=== PATIENT | male | born 1950 | race Caucasian/White ===

== ENCOUNTER 2019-08-03 23:16 | Inpatient (IN) | payer MEDICARE, OTHER ==
[2019-08-03] MEDS ORDERED: MORPHINE SULFATE 4 MG/ML SYRINGE IV STA (23:30)
--- NOTE | 2019-08-03 23:33 | ED ---
Fall HPI - General Chief Complaint: Fall Stated Complaint: Fall Time Seen by Provider: 08/03/19 23:25 Source: EMS Mode of arrival: EMS - History of Present Illness Initial Comments: This patient is 68-year-old man who presents by ambulance to be evaluated for left hip pain following a fall. Patient states that he was painting his ceiling tonight and was standing on a table approximately 3-4 feet high to reach the ceiling. I states that he lost his footing and fell landing on his left hip. This was approximately 4 hours ago. He states that he was then not able to bear any weight and had called EMS as result. He denies head or neck injury. No loss consciousness. He is not having chest, back, abdomen abdomen or other extremity pains. MD Complaint: fall -: hour(s) Fall From: from height (distance) (4) When Fall Occurred: 4-[address] Fall Occurred: home Loss of Consciousness: none Prolonged Down Time?: no Symptoms Prior to Fall: none Location - Extremities: Left: Thigh Severity: severe Quality: sharp Context: tripped/slipped Associated Symptoms: unable to walk - Related Data Allergies Allergy/AdvReac Type Severity Reaction Status Date / Time No Known Allergies Allergy Verified 08/03/19 23:26 Review of Systems ROS Statement: Those systems with pertinent positive or pertinent negative responses have been documented in the HPI. ROS Other: All systems not noted in ROS Statement are negative. Constitutional: Denies: fever, chills Respiratory: Denies: cough, dyspnea Cardiovascular: Denies: chest pain, syncope Gastrointestinal: Denies: abdominal pain, vomiting Genitourinary: Denies: hematuria, testicular pain Musculoskeletal: Reports: as per HPI, arthralgia. Denies: back pain Skin: Denies: rash Neurological: Denies: headache, weakness, numbness, paresthesias Past Medical History Past Medical History: Cancer, COPD, Hypertension Additional Past Medical History / Comment(s): bladder cancer, History of Any Multi-Drug Resistant Organisms: None Reported Past Surgical History: Orthopedic Surgery Additional Past Surgical History / Comment(s): right knee, right femur FX reduction, Past Psychological History: No Psychological Hx Reported Smoking Status: Current every day smoker Past Alcohol Use History: Daily Past Drug Use History: Marijuana General Exam Limitations: no limitations General appearance: alert, in no apparent distress Head exam: Present: atraumatic, normocephalic, normal inspection Eye exam: Present: normal appearance, PERRL, EOMI. Absent: scleral icterus, conjunctival injection, nystagmus ENT exam: Present: normal oropharynx Neck exam: Present: normal inspection, full ROM. Absent: tenderness, meningismus Respiratory exam: Present: normal lung sounds bilaterally. Absent: respiratory distress, wheezes, rales, rhonchi, stridor, chest wall tenderness Cardiovascular Exam: Present: regular rate, normal rhythm, normal heart sounds. Absent: systolic murmur, diastolic murmur, rubs, gallop GI/Abdominal exam: Present: soft. Absent: distended, tenderness, guarding, rebound, rigid, mass Extremities exam: Present: normal inspection, tenderness (Left hip), normal capillary refill. Absent: full ROM, pedal edema, calf tenderness Back exam: Present: normal inspection. Absent: CVA tenderness (R), CVA tenderness (L), paraspinal tenderness, vertebral tenderness Neurological exam: Present: alert, oriented X3. Absent: CN II-XII intact, motor sensory deficit Skin exam: Present: warm, dry, intact, normal color. Absent: rash Course Vital Signs 08/03/19 08/04/19 23:18 00:39 Temperature 98.2 F Pulse Rate 88 81 Respiratory 18 18 Rate Blood Pressure 140/105 156/92 O2 Sat by Pulse 98 97 Oximetry Medical Decision Making - EKG Data -: EKG Interpreted by Sd EKG shows normal: sinus rhythm (Rate 82 bpm), axis (Normal), intervals (Normal), QRS complexes (Normal), ST-T waves (Normal) Rate: normal Interpretation: normal EKG Disposition Clinical Impression: Fall, Closed left hip fracture Disposition: ADMITTED IP TO THIS [facility] Condition: Fair Is patient prescribed a controlled substance at d/c from ED?: No Referrals: None,Stated [Primary Care Provider] - 1-2 days
[2019-08-04] MEDS ORDERED: SODIUM CHLORIDE 0.9% 1,000 ML IV STA (00:09)
[2019-08-04] MEDS ORDERED: SODIUM CHLORIDE 0.9% 1,000 ML IV ONE (00:09)
--- NOTE | 2019-08-04 00:23 | XR ---
EXAMINATION TYPE: XR Hip LT and AP Pelvis DATE OF EXAM: 08/03/2019 COMPARISON: NONE HISTORY: Fall. Hip pain TECHNIQUE: 4 views FINDINGS: The pelvic ring is intact. There is acute intertrochanteric fracture of the left femur with coxa vera deformity. There is some comminution. There is no dislocation. There is right hip pinning noted. Sacroiliac joints are intact. IMPRESSION: Acute comminuted intertrochanteric fracture left femur.
[2019-08-04] MEDS ORDERED: HYDROmorphone 1 MG/ML 1 ML SYRINGE IVP STA (00:26)
--- NOTE | 2019-08-04 00:27 | XR ---
EXAMINATION TYPE: XR chest 1V DATE OF EXAM: 08/03/2019 COMPARISON: NONE HISTORY: Preop. Hip surgery. TECHNIQUE: 2 views AP FINDINGS: There is no heart failure nor confluent pneumonic infiltrate. Costophrenic angles are clear . Thoracic aorta is atheromatous. IMPRESSION: Atherosclerotic thoracic aorta. No active cardiopulmonary disease.
[2019-08-04] MEDS ORDERED: ACETAMINOPHEN TAB 325 MG TAB PO PRN (00:42)
[2019-08-04] MEDS ORDERED: ONDANSETRON 4 MG/2 ML VIAL IVP PRN (00:42)
[2019-08-04] MEDS ORDERED: MAG HYDROX/AL HYDROX/SIMETH 30 ML CUP PO PRN (00:42)
[2019-08-04] MEDS ORDERED: NALOXONE 0.4 MG/ML 1 ML VIAL IV PRN (00:42)
[2019-08-04] MEDS ORDERED: THIAMINE 100 MG/ML 2 ML VIAL IM STA (00:45)
[2019-08-04] MEDS ORDERED: SODIUM CHLORIDE 0.9% 1,000 ML IV SCH (00:45)
[2019-08-04] MEDS ORDERED: LORazepam 2 MG/ML INJ IV PRN ×3 (00:45)
[2019-08-04 00:58] LABS: African American GFR (CKD) >90 (>60 ml/min/1.73 sqM); Anion Gap 10 mmol/L; Blood Urea Nitrogen 8 mg/dL (9-20); Calcium 9.2 mg/dL (8.4-10.2); Carbon Dioxide 23 mmol/L (22-30); Chloride 93 mmol/L (98-107); Glucose 118 mg/dL (74-99); Non-African American GFR(CKD) >90 (>60 ml/min/1.73 sqM); Potassium 4.6 mmol/L (3.5-5.1); Sodium 126 mmol/L (137-145)
[2019-08-04 01:05] LABS: Basophils % (A) 0 %; Eosinophils # (A) 0.1 k/uL (0-0.7); Eosinophils % (A) 1 %; HCT 34.5 % (39.0-53.0); HGB 11.8 gm/dL (13.0-17.5); Lymphocytes # (A) 1.4 k/uL (1.0-4.8); Lymphocytes % (A) 12 %; MCH 32.2 pg (25.0-35.0); MCHC 34.3 g/dL (31.0-37.0); MCV 93.9 fL (80.0-100.0); Mean Platelet Volume 7.5; Monocytes # (A) 0.6 k/uL (0-1.0); Monocytes % (A) 5 %; Neutrophils # (A) 8.8 k/uL (1.3-7.7); Neutrophils % (A) 79 %; Platelet Count 271 k/uL (150-450); RBC 3.67 m/uL (4.30-5.90); RDW 13.4 % (11.5-15.5); WBC 11.1 k/uL (3.8-10.6)
[2019-08-04 01:09] LABS: Partial Thromboplastin Time 24.2 sec (22.0-30.0)
[2019-08-04 01:22] LABS: Appearance,Urine Clear (Clear); Bilirubin,Urine Negative (Negative); Blood,Urine Negative (Negative); Color,Urine Yellow; Glucose,Urine (UA) Negative (Negative); Hyaline Casts,Urine 3 /lpf (0-2); Ketones,Urine 1+ (Negative); Leukocyte Esterase,Urine Moderate (Negative); Mucus,Urine Rare /hpf; Nitrite,Urine Negative (Negative); Protein,Urine Trace (Negative); RBC,Urine 8 /hpf (0-5); Specific Gravity,Urine 1.017 (1.001-1.035); Urobilinogen,Urine <2.0 mg/dL (<2.0); WBC,Urine 32 /hpf (0-5)
[2019-08-04] MEDS: HYDROmorphone 1 MG/ML 1 ML SYRINGE IVP PRN ×6 (03:41→20:59)
[2019-08-04] MEDS: FAMOTIDINE 20 MG TAB PO SCH ×2 (08:26→20:58)
[2019-08-04] MEDS ORDERED: MONTELUKAST 10 MG TAB PO PRN (08:50)
--- NOTE | 2019-08-04 09:20 | P.HPOR ---
History of Present Illness H&P Date: 08/04/19 This patient is a 68-year-old male past medical history of alcohol abuse, nicotine dependence, and COPD that presented to [facility] ER yesterday via EMS with complaints of left hip pain following a fall. The patient states he had had a few beers, and decided to paint the ceiling. He was standing on top of a table, when he lost his balance and fell directly onto the left hip. He states he experienced immediate pain in the left hip and was unable to get up on his own. He states his family members helped him off the floor, and EMS was called. The patient was taken to [facility] emergency department, where x-rays of the left hip revealed a displaced intertrochanteric hip fracture. The patient was admitted under the care of Dr. Cortes Gomez, with a consult placed to internal medicine for surgical clearance and medical management. At the time exam, the patient is complaining of isolated left hip pain. He states he is not experiencing pain anywhere else. He states his pain is currently well-controlled in the left hip. He states he experienced significant pain with any movement of the left lower extremity. He denies any additional complaints at this time. Vital signs stable. Past Medical History Past Medical History: Cancer, COPD, Hypertension Additional Past Medical History / Comment(s): bladder cancer, History of Any Multi-Drug Resistant Organisms: None Reported Past Surgical History: Orthopedic Surgery Additional Past Surgical History / Comment(s): right knee, right femur FX reduction, Past Anesthesia/Blood Transfusion Reactions: No Reported Reaction Past Psychological History: No Psychological Hx Reported Smoking Status: Current every day smoker Past Alcohol Use History: Daily Additional Past Alcohol Use History / Comment(s): Drinks about 8 beers a daily. Has been smoking for 60 years. Past Drug Use History: Marijuana - Past Family History Mother Family Medical History: Diabetes Mellitus Father Family Medical History: Diabetes Mellitus Additional Family Medical History / Comment(s): of a heart attack Medications and Allergies Home Medications Medication Instructions Recorded Confirmed Type Fluticasone/Salmeterol [Advair Hfa 1 puff INHALATION RT-BID 08/04/19 08/04/19 History 115-21 Mcg Inhaler] Ibuprofen 400 mg PO Q8H PRN 08/04/19 08/04/19 History Ipratropium/Albuter 20-100Mcg 1 puff INHALATION RT-QID 08/04/19 08/04/19 History [Combivent Respimat 20-100Mcg Inhaler] Lisinopril 40 mg PO DAILY 08/04/19 08/04/19 History Montelukast [Singulair] 10 mg PO DAILY PRN 08/04/19 08/04/19 History amLODIPine BESYLATE 5 mg PO DAILY 08/04/19 08/04/19 History Allergies Allergy/AdvReac Type Severity Reaction Status Date / Time No Known Allergies Allergy Verified 08/04/19 08:16 Physical Examination On examination, the patient is lying in bed in no apparent distress. He is alert and oriented 3. His head appears normocephalic and atraumatic. His breathing appears nonlabored. On inspection of the bilateral upper extremities, there are no obvious deformities or signs of trauma. On inspection of the right lower extremity there is no obvious deformities or signs of trauma. On inspection of the left lower extremity, the extremity is shortened and externally rotated. There is significant pain on palpation of the left hip. Patient has good strength and range of motion of the left ankle. Motor and sensory function appear to be intact of the left lower extremity. Left lower extremity is warm and well-perfused with brisk capillary refill. Dorsalis pedis pulse +2. Vital signs stable. Results Left hip x-ray 08/03/2019: Displaced intertrochanteric hip fracture - Labs Labs: Abnormal Lab Results - Last 24 Hours (Table) 08/03/19 08/03/19 08/04/19 Range/Units 23:24 23:24 01:08 WBC 11.1 H (3.8-10.6) k/uL RBC 3.67 L (4.30-5.90) m/uL Hgb 11.8 L (13.0-17.5) gm/dL Hct 34.5 L (39.0-53.0) % Neutrophils # 8.8 H (1.3-7.7) k/uL Sodium 126 L (137-145) mmol/L Chloride 93 L (98-107) mmol/L BUN 8 L (9-20) mg/dL Creatinine 0.34 L (0.66-1.25) mg/dL Glucose 118 H (74-99) mg/dL Urine Protein Trace H (Negative) Urine Ketones 1+ H (Negative) Ur Leukocyte Esterase Moderate H (Negative) Urine RBC 8 H (0-5) /hpf Urine WBC 32 H (0-5) /hpf Hyaline Casts 3 H (0-2) /lpf Urine Mucus Rare H (None) /hpf H & H 08/03/19 Range/Units 23:24 Hgb 11.8 L (13.0-17.5) gm/dL Hct 34.5 L (39.0-53.0) % Coagulation 08/03/19 Range/Units 23:24 INR 1.0 (<1.2) Result Diagrams: 08/03/19 23:24 08/03/19 23:24 Assessment and Plan Assessment: Displaced left intertrochanteric fracture Plan: - The clinical and x-ray findings were discussed with the patient. Patient was discussed with Dr. Cortes Gomez. Operative fixation of the left hip is recommended. We will plan for a closed reduction and intramedullary nailing of the left hip today, pending medical clearance and consent. - Strict nonweightbearing left lower extremity. - Continue pain management as needed. - Medical management per internal medicine. - NPO diet. Patient discussed with Dr. Gomez.
[2019-08-04 10:45] VITALS: BMI 18.2
[2019-08-04] MEDS: amLODIPine 5 MG TAB PO SCH (11:15)
[2019-08-04 11:36] LABS: Potassium 4.2 mmol/L (3.5-5.1)
[2019-08-04] MEDS: IPRATROPIUM-ALBUTEROL 3 ML NEB INHALATION SCH ×3 (11:44→20:30)
--- NOTE | 2019-08-04 11:54 | P.CONS ---
History of Present Illness - Reason for Consult Preoperative clearance. - History of Present Illness 68-year-old the female admitted for mechanical fall without any syncope and left hip fracture and patient will undergo surgical intervention today. Patient has fairly good functionality although drinks an daily basis as today he did drink 3 beers before he came to the hospital and the normally he drinks about 8-10 beers on a daily basis denied any alcohol withdrawals in the past patient does smoke does have a wheezing which is chronic and significant. Patient denied any chest pain denied any shortness of breath orthopnea. Patient denied any fever chills. Patient had an EKG which showed sinus rhythm without any acute ST-T wave changes thumb no murmurs and clinical exam. Patient's baseline functionality is fairly good Review of Systems REVIEW OF SYSTEMS: CONSTITUTIONAL: No fever, no malaise, no fatigue. HEENT: No recent visual problems or hearing problems. Denied any sore throat. CARDIOVASCULAR: No chest pain, orthopnea, PND, no palpitations, no syncope. PULMONARY: No shortness of breath, no cough, no hemoptysis. GASTROINTESTINAL: No diarrhea, no nausea, no vomiting, no abdominal pain. NEUROLOGICAL: No headaches, no weakness, no numbness. HEMATOLOGICAL: Denies any bleeding or petechiae. GENITOURINARY: Denies any burning micturition, frequency, or urgency. MUSCULOSKELETAL/RHEUMATOLOGICAL: Denies any joint pain, swelling, or any muscle pain. ENDOCRINE: Denies any polyuria or polydipsia. The rest of the 14-point review of systems is negative. Past Medical History Past Medical History: Cancer, COPD, Hypertension Additional Past Medical History / Comment(s): bladder cancer, History of Any Multi-Drug Resistant Organisms: None Reported Past Surgical History: Orthopedic Surgery Additional Past Surgical History / Comment(s): right knee, right femur FX reduction, Past Anesthesia/Blood Transfusion Reactions: No Reported Reaction Past Psychological History: No Psychological Hx Reported Smoking Status: Current every day smoker Past Alcohol Use History: Daily Additional Past Alcohol Use History / Comment(s): Drinks about 8 beers a daily. Has been smoking for 60 years. Past Drug Use History: Marijuana - Past Family History Mother Family Medical History: Diabetes Mellitus Father Family Medical History: Diabetes Mellitus Additional Family Medical History / Comment(s): of a heart attack Medications and Allergies Home Medications Medication Instructions Recorded Confirmed Type Fluticasone/Salmeterol [Advair Hfa 1 puff INHALATION RT-BID 08/04/19 08/04/19 History 115-21 Mcg Inhaler] Ibuprofen 400 mg PO Q8H PRN 08/04/19 08/04/19 History Ipratropium/Albuter 20-100Mcg 1 puff INHALATION RT-QID 08/04/19 08/04/19 History [Combivent Respimat 20-100Mcg Inhaler] Lisinopril 40 mg PO DAILY 08/04/19 08/04/19 History Montelukast [Singulair] 10 mg PO DAILY PRN 08/04/19 08/04/19 History amLODIPine BESYLATE 5 mg PO DAILY 08/04/19 08/04/19 History Allergies Allergy/AdvReac Type Severity Reaction Status Date / Time No Known Allergies Allergy Verified 08/04/19 08:16 Physical Exam Vitals: Vital Signs Temp Pulse Pulse Resp BP BP Pulse Ox 08/04/19 08:00 89 17 08/04/19 07:00 97.9 F 89 17 155/69 97 08/04/19 03:58 18 08/04/19 01:59 82 18 146/74 95 08/04/19 01:55 97.9 F 08/04/19 00:39 81 18 156/92 97 08/03/19 23:18 98.2 F 88 18 140/105 98 Intake and Output 08/03/19 08/04/19 08/04/19 22:59 06:59 14:59 Output Total 600 Balance -600 Output: Urine 600 Other: Voiding Method Bedpan Bedpan Weight 54.431 kg 54.431 kg PHYSICAL EXAMINATION: GENERAL: The patient is alert and oriented x3, not in any acute distress. Thin built HEENT: Pupils are round and equally reacting to light. EOMI. No scleral icterus. No conjunctival pallor. Normocephalic, atraumatic. No pharyngeal erythema. No thyromegaly. CARDIOVASCULAR: S1 and S2 present. No murmurs, rubs, or gallops. PULMONARY: Mild expiratory wheezing on exam ABDOMEN: Soft, nontender, nondistended, normoactive bowel sounds. No palpable organomegaly. MUSCULOSKELETAL: No joint swelling or deformity. EXTREMITIES: No cyanosis, clubbing, or pedal edema. NEUROLOGICAL: Gross neurological examination did not reveal any focal deficits. SKIN: No rashes. Results CBC & Chem 7: 08/03/19 23:24 08/04/19 10:40 Labs: Abnormal Lab Results - Last 24 Hours (Table) 08/03/19 08/03/19 08/04/19 Range/Units 23:24 23:24 01:08 WBC 11.1 H (3.8-10.6) k/uL RBC 3.67 L (4.30-5.90) m/uL Hgb 11.8 L (13.0-17.5) gm/dL Hct 34.5 L (39.0-53.0) % Neutrophils # 8.8 H (1.3-7.7) k/uL Sodium 126 L (137-145) mmol/L Chloride 93 L (98-107) mmol/L BUN 8 L (9-20) mg/dL Creatinine 0.34 L (0.66-1.25) mg/dL Glucose 118 H (74-99) mg/dL Urine Protein Trace H (Negative) Urine Ketones 1+ H (Negative) Ur Leukocyte Esterase Moderate H (Negative) Urine RBC 8 H (0-5) /hpf Urine WBC 32 H (0-5) /hpf Hyaline Casts 3 H (0-2) /lpf Urine Mucus Rare H (None) /hpf 08/04/19 Range/Units 10:40 WBC (3.8-10.6) k/uL RBC (4.30-5.90) m/uL Hgb (13.0-17.5) gm/dL Hct (39.0-53.0) % Neutrophils # (1.3-7.7) k/uL Sodium 130 L (137-145) mmol/L Chloride 97 L (98-107) mmol/L BUN (9-20) mg/dL Creatinine (0.66-1.25) mg/dL Glucose (74-99) mg/dL Urine Protein (Negative) Urine Ketones (Negative) Ur Leukocyte Esterase (Negative) Urine RBC (0-5) /hpf Urine WBC (0-5) /hpf Hyaline Casts (0-2) /lpf Urine Mucus (None) /hpf Assessment and Plan Plan: -Preoperative clearance for left hip fracture. Patient is a moderate risk for surgery because of poor lung function and smoking history with simple superi mposed to probability of alcohol withdrawals. The risk was explained to the patient and the patient is agreeable to go for the surgery although patient declined any blood products if needed during the surgery. No further testing is necessary. -COPD with mild the wheezing and exacerbation patient was started on inhaled steroids inhalational treatments. -Alcohol abuse: Counseling was provided, patient will be on Ativan CIWA protocol, post-surgery patient will be monitored closely -Hypertension continue amlodipine hold off lisinopril to avoid perioperative hypotension -History of bladder cancer in the past -DVT prophylaxis as per primary service
[2019-08-04] MEDS: THIAMINE 100 MG TAB PO SCH (17:25)
[2019-08-04] MEDS: SODIUM CHLORIDE 0.9% 1,000 ML IV SCH (19:16)
[2019-08-04] MEDS: SYMBICORT 160-4.5 MCG INHALER INHALATION SCH (20:31)
[2019-08-05] MEDS: HYDROmorphone 1 MG/ML 1 ML SYRINGE IVP PRN ×6 (00:03→21:27)
[2019-08-05] MEDS: SODIUM CHLORIDE 0.9% 1,000 ML IV SCH ×2 (00:06→15:00)
[2019-08-05] MEDS ORDERED: IPRATROPIUM-ALBUTEROL 3 ML NEB INHALATION PRN (02:08)
--- NOTE | 2019-08-05 02:38 | XR ---
EXAMINATION TYPE: XR chest 1V portable DATE OF EXAM: 08/05/2019 COMPARISON: 08/03/2019 HISTORY: Hypoxemia TECHNIQUE: 2 views FINDINGS: There is a minimal airspace infiltrate in the right lower lobe. Heart and mediastinum are w ithin normal limits. Costophrenic angles are clear. There are no hilar masses. IMPRESSION: There is a new minimal infiltrate right lower lobe compared to last exam. Normal heart.
[2019-08-05] MEDS: THIAMINE 100 MG TAB PO SCH ×2 (07:12→17:27)
[2019-08-05] MEDS: FAMOTIDINE 20 MG TAB PO SCH ×2 (07:13→21:27)
[2019-08-05] MEDS: amLODIPine 5 MG TAB PO SCH (07:37)
[2019-08-05] MEDS ORDERED: methylPREDNISolone SOD SUCCI 125 MG/2 ML VIAL IV STA (08:25)
[2019-08-05] MEDS: SYMBICORT 160-4.5 MCG INHALER INHALATION SCH (08:27)
[2019-08-05] MEDS: IPRATROPIUM-ALBUTEROL 3 ML NEB INHALATION SCH ×4 (08:27→20:47)
[2019-08-05 08:41] LABS: Basophils % (A) 0 %; Eosinophils # (A) 0.1 k/uL (0-0.7); Eosinophils % (A) 1 %; HCT 32.2 % (39.0-53.0); HGB 10.7 gm/dL (13.0-17.5); Lymphocytes # (A) 1.1 k/uL (1.0-4.8); Lymphocytes % (A) 7 %; MCH 31.9 pg (25.0-35.0); MCHC 33.4 g/dL (31.0-37.0); MCV 95.6 fL (80.0-100.0); Mean Platelet Volume 6.8; Monocytes # (A) 0.7 k/uL (0-1.0); Monocytes % (A) 4 %; Neutrophils # (A) 13.1 k/uL (1.3-7.7); Neutrophils % (A) 86 %; Platelet Count 241 k/uL (150-450); RBC 3.36 m/uL (4.30-5.90); RDW 13.2 % (11.5-15.5); WBC 15.2 k/uL (3.8-10.6)
[2019-08-05 08:51] LABS: African American GFR (CKD) >90 (>60 ml/min/1.73 sqM); Anion Gap 14 mmol/L; Blood Urea Nitrogen 6 mg/dL (9-20); Calcium 9.2 mg/dL (8.4-10.2); Carbon Dioxide 21 mmol/L (22-30); Chloride 94 mmol/L (98-107); Glucose 94 mg/dL (74-99); Non-African American GFR(CKD) >90 (>60 ml/min/1.73 sqM); Potassium 3.8 mmol/L (3.5-5.1); Sodium 129 mmol/L (137-145)
--- NOTE | 2019-08-05 09:36 | P.PN ---
Progress Note - Text Progress Note Date: 08/05/19 Orthopedics: History of present illness: Patient is a pleasant 68-year-old male who is seen and examined at bedside for further evaluation regards to his left intertrochanteric hip fracture status post fall. Patient was scheduled to undergo surgical intervention today but the surgery has been delayed as the patient was having difficulty with oxygen saturation. He is currently on 2 L of oxygen with saturations in the 90s. His temperature was slightly elevated at 99.2 as well. His last temperature reading is currently 98.2. He continues have significant pain in his left hip. He is not ambulatory. We are currently waiting for clearance by medicine before proceeding forward with surgical intervention. He is having significant difficulty with any active range of motion the left lower extremity. He is known to have sustained a fall on 08/03/2019 while standing on a table while painting falling directly on his left hip. He is currently nothing by mouth status. He has had increase in his neutrophils and WBC. He continues to have d ifficulty with hyponatremia and low chloride. Physical exam: Patient is awake, alert, and oriented 3 Vital signs stable Adequate chest excursion with deep inspiration and expiration; patient currently on 10 L of oxygen Abdomen soft nontender Left lower extremity is shortened and externally rotated Pain with palpation of the left hip Significant pain with internal and external rotation of the left hip Significant difficulty with any range of motion of the left lower extremity. No pain with internal and external rotation of the right hip Neurovascularly intact bilateral lower extremities Dorsiflexion, plantarflexion, and extensor hallucis longus positive sustained bilaterally Calves are soft and supple; No signs or symptoms of DVT; No calf pain Pertinent studies taken on 08/05/2019: WBC 15.2 Neutrophils 13.1 Sodium 129 Chloride 94 BUN 6 Creatinine 0.35 Assessment: Left intertrochanteric hip fracture status post fall Left hip pain History of alcohol abuse COPD Hypertension History of bladder cancer Plan: 1. Patient has been discussed in detail Dr. Cortes Gomez. We're currently planning for surgical intervention at his left hip once cleared by medicine. We discussed surgery will be a left intramedullary nail fixation for left intertrochanteric hip fracture. Patient is eager to proceed forward with surgical intervention. We discussed due to his desaturation in his current requirement of 10 L of oxygen, we currently need further evaluation and clearance by medicine before being able to proceed forward with surgical intervention. Patient will continue to be nothing by mouth status in anticipation for possible surgical intervention later today. We will continue to follow patient closely. 2. Patient will continue his exam by medicine for his other medical diagnoses and for medical clearance 3. Continue pain control with medications as prescribed while avoiding oral medications
[2019-08-05] MEDS: LEVOFLOXACIN 500 MG TAB PO SCH (10:57)
--- NOTE | 2019-08-05 11:54 | P.PN ---
Subjective 68-year-old male who was admitted for a hip fracture supposed to undergo surgical intervention today but patient went into respiratory distress respi ratory failure was hypoxic last night she is requiring 10 L of oxygen. Because of this patient probably can go to surgery today patient is not having any alcohol withdrawals. On exam patient is not wheezing patient was started on systemic steroids patient has a new infiltrate in the right lower lung martell because of which are patient was started on levofloxacin by pulmonary the. As he doesn't have any significant wheezing at I don't have a good explanation for his shortness of breath I'll obtain a BNP patient clinically doesn't appear to be in CHF exacerbation as well. We'll check the pulse ox on the earlobe and if still low will obtain an ABG and if ABG shows hypoxic respiratory failure then we will obtain a d-dimer and if it that's elevated patient Will obtain a CAT scan of the chest rule out pulmonary embolism which shows hypercapnic respiratory failure discontinued the breathing treatments and systemic steroids at that time. Patient although feels well looks clear denied any shortness of breath patient is not in respiratory distress clinically. Constitutional: Denied any fatigue denied any fever. Cardio vascular: denied any chest pain, palpitations Gastrointestinal denied any nausea vomiting Pulmonary: As mentioned in HPI Neurologic denied any new focal deficits All inpatient medications were reviewed and appropriate changes in these medications as dictated in the interval history and assessment and plan. Objective - Vital Signs Vital signs: Vital Signs Temp 98.2 F 08/05/19 07:00 Pulse 100 08/05/19 08:41 Resp 20 08/05/19 07:00 BP 129/92 08/05/19 07:00 Pulse Ox 93 L 08/05/19 07:00 Intake & Output 08/04/19 08/05/19 08/05/19 18:59 06:59 18:59 Output Total 800 1900 Balance -800 -1900 Weight 54.431 kg Output: Urine 800 1900 Other: Voiding Method Bedpan Urinal # Voids 2 - Exam PHYSICAL EXAMINATION: GENERAL: The patient is alert and oriented x3, not in any acute distress. Thin built HEENT: Pupils are round and equally reacting to light. EOMI. No scleral icterus. No conjunctival pallor. Normocephalic, atraumatic. No pharyngeal erythema. No thyromegaly. CARDIOVASCULAR: S1 and S2 present. No murmurs, rubs, or gallops. PULMONARY: She has good air entry without any wheezing today. ABDOMEN: Soft, nontender, nondistended, normoactive bowel sounds. No palpable organomegaly. MUSCULOSKELETAL: No joint swelling or deformity. EXTREMITIES: No cyanosis, clubbing, or pedal edema. NEUROLOGICAL: Gross neurological examination did not reveal any focal deficits. SKIN: No rashes. - Labs CBC & Chem 7: 08/05/19 08:26 08/05/19 08:26 Labs: Abnormal Lab Results - Last 24 Hours (Table) 08/05/19 08/05/19 Range/Units 08:26 08:26 WBC 15.2 H (3.8-10.6) k/uL RBC 3.36 L (4.30-5.90) m/uL Hgb 10.7 L (13.0-17.5) gm/dL Hct 32.2 L (39.0-53.0) % Neutrophils # 13.1 H (1.3-7.7) k/uL Sodium 129 L (137-145) mmol/L Chloride 94 L (98-107) mmol/L Carbon Dioxide 21 L (22-30) mmol/L BUN 6 L (9-20) mg/dL Creatinine 0.35 L (0.66-1.25) mg/dL Assessment and Plan Plan: -Acute respiratory failure mostly hypoxic and Ativan hypercapnic further management as mentioned above -Hyponatremia secondary to hypovolemia and possibility of beer potomania continuous IV fluids we'll Allsop in a BNP clinically patient doesn't have any elevated JVD -Preoperative clearance for left hip fracture. Patient was pretty status has worsened because of which patient it's probably not a good idea for him to go for surgery today we will monitor him clinically further management of his respiratory failure as mentioned above his respiratory status improves patient probably can go for surgery tomorrow -COPD with possible exacerbation continue with the inhaled steroids inhalational treatments systemic steroids were ordered. -Possibly of right lower lobe pneumonia for which patient was started on levofloxacin -Alcohol abuse: Counseling was provided, patient will be on Ativan CIWA protocol, post-surgery patient will be monitored closely. Patient is not having any withdrawals at this time -Hypertension continue amlodipine hold off lisinopril to avoid perioperative hypotension -History of bladder cancer in the past -DVT prophylaxis as per primary service -tachycardia probably secondary to hypoxemia: We'll obtain EKG appears to have sinus tach cardia clinically
[2019-08-05] MEDS ORDERED: methylPREDNISolone SOD SUCCI 40 MG/ML 1 ML VIAL IV SCH (12:00)
[2019-08-05] MEDS ORDERED: KETOROLAC 30 MG/ML 1 ML VIAL IVP SCH (12:00)
[2019-08-05] MEDS ORDERED: KETOROLAC 30 MG/ML 1 ML VIAL IVP PRN (12:03)
--- NOTE | 2019-08-05 12:26 | CONS ---
CONSULTATION PULMONARY/CRITICAL CARE CONSULTATION: DATE OF CONSULTATION: August 05, 2019 This is a 68-year-old male who presents to the emergency room on August 02, brought in by EMS because he fell. He was apparently painting the ceiling standing on a table while he was doing it. The patient apparently stepped back on the table and fell off the table injuring his left hip. He apparently was found to have a left hip fracture. The patient was brought into the emergency room to be evaluated. I am asked to see the patient now because of breathing difficulty. The patient does have a history of underlying COPD. The patient complains of increasing shortness of breath. His saturations drop and they put him on high-flow oxygen therapy and consulted us. The patient does admit to increasing shortness of breath, tightness, cough and wheezing. Not coughing up any phlegm. As I mentioned, he does continue to smoke cigarettes. The patient will be placed on DuoNeb q.i.d. and p.r.n., Pulmicort and Perforomist at usual doses, and corticosteroids. Currently, the patient is resting comfortably in bed. MEDICATIONS: His home medications include Singulair, ibuprofen, Combivent inhaler, Advair, amlodipine, and lisinopril. ALLERGIES: Allergies are denied. MEDICAL HISTORY: Medical history is positive for COPD, bladder cancer, and hypertension. SURGICAL HISTORY: Surgical history includes right knee surgery, right femur fracture with reduction. He has also had some other minor procedures. SOCIAL HISTORY: Positive for ongoing tobacco use. He does drink daily. He does use or has used marijuana in the past. FAMILY HISTORY: Noncontributory. Both mom and dad were healthy. REVIEW OF SYSTEMS: CONSTITUTIONAL: Negative. NEUROLOGIC: Negative. HEENT: Negative. CARDIOVASCULAR: Negative. PULMONARY: Shortness of breath, chest tightness, wheezing, cough. GI: Negative. : Negative. RHEUMATOLOGIC: Negative. IMMUNOLOGIC: Negative. ENDOCRINOLOGIC: Negative. DERMATOLOGIC: Negative. MUSCULOSKELETAL: Positive for left hip pain. PHYSICAL EXAMINATION: VITAL SIGNS: Current vital signs are reviewed. Temperature is 98.2, heart rate 100, respiratory rate 20, blood pressure 129/92, mean 104, saturations are 93% on 10 L high flow. GENERAL: Appears in no acute distress. Mildly tachypneic. No audible wheezing or use of accessory muscles. HEENT: Examination is grossly unremarkable. High-flow cannula in place. NECK: Supple. Full range of motion. No adenopathy. CARDIOVASCULAR: Examination reveals regular rhythm and rate. S1, S2 normal. No S3, S4, or murmur. LUNGS: Reveal diminished breath sounds. There are expiratory wheezes and rhonchi. There is prolongation. The patient's adventitious lung sounds are worsened on forced maneuver. Breath sounds are equal bilaterally, but diminished throughout. ABDOMEN: Soft. Bowel sounds are heard. EXTREMITIES: Are intact. The left leg is shortened and externally rotated. There is tenderness over the left hip area. SKIN: Without rash. NEUROLOGIC: Examination is nonfocal. LABS: Labs are reviewed. White count 15.2, hemoglobin 10.7, hematocrit 32.2, platelet count 241,000. Sodium 129, potassium 3.8, chloride 94, CO2 of 21. Anion gap is 14. BUN and creatinine were 6 and 0.35. Urine is trace protein, 1+ ketones, moderate leukocyte esterase, 8 RBCs, 32 WBCs and some hyaline casts. Chest x-ray shows a minimal right lower lobe infiltrate. MEDICATIONS: Medications are reviewed. Currently, the patient is on Pulmicort and formoterol at usual doses, DuoNeb q.i.d. and p.r.n., Levaquin, which will cover both the urine and the lung, and Solu-Medrol at 40 mg q.6. ASSESSMENT: 1. Acute comminuted intertrochanteric fracture, left femur. 2. Chronic obstructive pulmonary disease exacerbation in a patient with underlying chronic obstructive pulmonary disease and ongoing tobacco use. 3. Possible right lower lobe pneumonia. 4. Rule out urinary tract infection. 5. Ongoing tobacco use with nicotine addiction. 6. Chronic alcohol use. 7. History of bladder cancer. 8. History of benign essential hypertension. PLAN: Please see my orders. Additional recommendations and suggestions are forthcoming. The patient was placed on DuoNeb q.i.d. and p.r.n. as well as Pulmicort 1 mg and Perforomist 20 mcg twice a day. The patient was also given Solu-Medrol 40 mg q.6 and Levaquin daily. We will continue to follow. Prognosis is guarded. I certainly would not do a repair of the left hip until the infections and his COPD are under better control. We will continue to follow. MMODL / IJN: [id number] /
[2019-08-05 12:47] LABS: ABG Base Excess -1.8 mmol/L; ABG HCO3 22 mmol/L (21-25); ABG Oxygen Saturation 92.4 % (94-97); ABG PCO2 32 mmHg (35-45); ABG PH 7.45 (7.35-7.45); ABG PO2 61 mmHg (83-108); ABG TCO2 23 mmol/L (19-24); Allen Test Performed? Yes
[2019-08-05 17:00] LABS: Glucose,Whole Blood 143 mg/dL (75-99)
[2019-08-05] MEDS: INSULIN ASPART (NovoLOG) 100 UNIT/ML VIAL SQ SCH ×2 (17:27→20:20)
[2019-08-05 19:56] LABS: Glucose,Whole Blood 157 mg/dL (75-99)
[2019-08-05] MEDS: BUDESONIDE 1 MG/2 ML NEBU INHALATION SCH (20:46)
[2019-08-05] MEDS: FORMOTEROL FUMARATE 20 MCG/2 ML NEBU INHALATION SCH (20:47)
[2019-08-05] MEDS: methylPREDNISolone SOD SUCCI 40 MG/ML 1 ML VIAL IV SCH (23:19)
[2019-08-06] MEDS: TEMAZEPAM 15 MG CAP PO PRN ×2 (00:31→23:35)
[2019-08-06] MEDS: HYDROmorphone 1 MG/ML 1 ML SYRINGE IVP PRN ×6 (00:32→23:34)
[2019-08-06] MEDS: SODIUM CHLORIDE 0.9% 1,000 ML IV SCH (06:24)
[2019-08-06 06:29] LABS: African American GFR (CKD) >90 (>60 ml/min/1.73 sqM); Anion Gap 9 mmol/L; Blood Urea Nitrogen 10 mg/dL (9-20); Calcium 9.2 mg/dL (8.4-10.2); Carbon Dioxide 25 mmol/L (22-30); Chloride 95 mmol/L (98-107); Glucose 137 mg/dL (74-99); Non-African American GFR(CKD) >90 (>60 ml/min/1.73 sqM); Potassium 3.8 mmol/L (3.5-5.1); Sodium 129 mmol/L (137-145)
[2019-08-06 06:45] LABS: HCT 27.9 % (39.0-53.0); HGB 9.6 gm/dL (13.0-17.5); MCH 32.1 pg (25.0-35.0); MCHC 34.3 g/dL (31.0-37.0); MCV 93.7 fL (80.0-100.0); Mean Platelet Volume 7.2; Platelet Count 243 k/uL (150-450); RBC 2.98 m/uL (4.30-5.90); RDW 13.3 % (11.5-15.5); WBC 9.7 k/uL (3.8-10.6)
[2019-08-06 07:09] LABS: Glucose,Whole Blood 142 mg/dL (75-99)
[2019-08-06] MEDS: FORMOTEROL FUMARATE 20 MCG/2 ML NEBU INHALATION SCH ×2 (07:54→19:39)
[2019-08-06] MEDS: IPRATROPIUM-ALBUTEROL 3 ML NEB INHALATION SCH ×4 (07:54→19:39)
[2019-08-06] MEDS: BUDESONIDE 1 MG/2 ML NEBU INHALATION SCH ×2 (07:54→19:39)
[2019-08-06] MEDS: methylPREDNISolone SOD SUCCI 40 MG/ML 1 ML VIAL IV SCH ×3 (08:41→23:34)
[2019-08-06] MEDS: FAMOTIDINE 20 MG TAB PO SCH ×2 (08:41→20:35)
[2019-08-06] MEDS: THIAMINE 100 MG TAB PO SCH ×2 (08:41→17:31)
[2019-08-06] MEDS: LEVOFLOXACIN 500 MG TAB PO SCH (08:41)
[2019-08-06] MEDS: amLODIPine 5 MG TAB PO SCH (08:41)
[2019-08-06] MEDS: INSULIN ASPART (NovoLOG) 100 UNIT/ML VIAL SQ SCH ×4 (08:42→20:35)
--- NOTE | 2019-08-06 09:37 | P.PN ---
Progress Note - Text Progress Note Date: 08/06/19 Orthopedics: History of present illness: Patient is a pleasant 68-year-old male who is seen and examined at bedside for further evaluation regards to his left intertrochanteric hip fracture status post fall. Patient was scheduled to undergo surgical intervention yesterday but the surgery has been delayed as the patient was having difficulty with oxygen saturation. He is currently on 3.5 L of oxygen with saturations in the 90s. He has not been cleared for surgery by pulmonology. He continues have significant pain in his left hip. He is not ambulatory. We are currently waiting for clearance by medicine before proceeding forward with surgical intervention. He is having significant difficulty with any active range of motion the left lower extremity. He is known to have sustained a fall on 08/03/2019 while standing on a table while painting falling directly on his left hip. His WBC has improved. He continues to have difficulty with hyponatremia and low chloride. Nursing states his d-dimer is also elevated. Patient is eager for surgical int ervention. He's be getting without difficulty. Physical exam: Patient is awake, alert, and oriented 3 Vital signs stable Adequate chest excursion with deep inspiration and expiration; patient currently on 10 L of oxygen Left lower extremity is shortened and externally rotated Pain with palpation of the left hip Significant pain with internal and external rotation of the left hip Significant difficulty with any range of motion of the left lower extremity. No pain with internal and external rotation of the right hip Neurovascularly intact bilateral lower extremities Dorsiflexion, plantarflexion, and extensor hallucis longus positive sustained bilaterally Calves are soft and supple; No signs or symptoms of DVT; No calf pain Pertinent studies taken on 08/06/2019: WBC 9.7 Sodium 129 Chloride 95 Assessment: Left intertrochanteric hip fracture status post fall Left hip pain History of alcohol abuse COPD Hypertension History of bladder cancer Plan: 1. Patient has been discussed in detail Dr. Cortes Gomez. We're currently planning for surgical intervention at his left hip once cleared by medicine and pulmonology. We will wait to board surgical intervention until clearance is obtained. We discussed surgery will be a left intramedullary nail fixation for left intertrochanteric hip fracture. Patient is eager to proceed forward with surgical intervention. We discussed due to his desaturation in his current requirement of 3.5 L of oxygen, we currently need further evaluation and clearan ce by medicine and pulmonology before being able to proceed forward with surgical intervention. Patient may continue to eat a regular diet today. We will continue to follow patient closely. 2. Patient will continue his exam by medicine and pulmonology for his other medical diagnoses and for medical clearance 3. Continue pain control with medications as prescribed while avoiding oral medications
--- NOTE | 2019-08-06 10:59 | CT ---
EXAMINATION TYPE: CT angio chest DATE OF EXAM: 08/06/2019 10:51 AM COMPARISON: None. HISTORY: PE CT DLP: 171.60 mGycm Automated exposure control for dose reduction was used. CONTRAST: CTA scan of the thorax is performed without and with IV Contrast, patient injected with 100 ml mL of Isovue 370, pulmonary embolism protocol. . FINDINGS: There is basilar airspace disease present bilaterally, greater on the right than the left. There is emphysematous change most prominent along the major fissure on the right and also in the rig ht lower lobe. This also present to lesser extent in the left lung. There is also interstitial change present along the major fissure on the left and also in the medial The root of the aorta is prominent measuring 3.9 cm. The proximal arch is minimally aneurysmal measur ing 3.1 cm. The proximal descending thoracic aorta is aneurysmal measuring 3.1 cm. The rest of the ao rta is normal in caliber. There is no evidence of dissection. There is extensive atheromatous calcifi cation including the coronary arteries. There is no pleural or pericardial fluid. There is a small sl iding hiatal hernia. Visualized portions of the upper abdomen are unremarkable. IMPRESSION: #1 THIS EXAMINATION IS NEGATIVE FOR PULMONARY EMBOLUS. 2. BIBASILAR CONSOLIDATION WORSE ON THE RIGHT THAN THE LEFT. 3. EMPHYSEMATOUS CHANGES WELL INTERSTITIAL FIBROSIS MOST MARKED ALONG THE FISSURES BILATERALLY. 4. MILD ANEURYSMAL DILATATION OF THE ASCENDING THORACIC AORTA.
[2019-08-06 11:35] LABS: Glucose,Whole Blood 143 mg/dL (75-99)
--- NOTE | 2019-08-06 12:42 | P.NPCON ---
History of Present Illness - Reason for Consult Consult date: 08/06/19 hyponatremia - Chief Complaint Hyponatremia, SIADH - History of Present Illness This is a 68-year-old male seen in consultation because of hyponatremia. His sodium was 126 improved to 1:30 and is down again to 129 this morning Creatinine is normal. He was admitted with fall and fracture of the left femur and previously 3 years ago had a right femur fracture of the His likely SIADH. Patient is known with chronic hyponatremia supposedly 3 years ago had fracture of the right hip and was told that he has low sodium at the time. He is known though with the risk factors for cancers including chronic smoking. He is also on daily consumption of about a pack of beer daily. He denies any na usea vomiting chest pain shortness of breath fever chills cough abdominal pain. He has fair amount of pain in his left femoral fracture area. Is known with bladder cancer COPD hypertension Past Medical History Past Medical History: Cancer, COPD, Hypertension Additional Past Medical History / Comment(s): bladder cancer, History of Any Multi-Drug Resistant Organisms: None Reported Past Surgical History: Orthopedic Surgery Additional Past Surgical History / Comment(s): right knee, right femur FX reduction, Past Anesthesia/Blood Transfusion Reactions: No Reported Reaction Past Psychological History: No Psychological Hx Reported Smoking Status: Current every day smoker Past Alcohol Use History: Daily Additional Past Alcohol Use History / Comment(s): Drinks about 8 beers a daily. Has been smoking for 60 years. Past Drug Use History: Marijuana - Past Family History Mother Family Medical History: Diabetes Mellitus Father Family Medical History: Diabetes Mellitus Additional Family Medical History / Comment(s): of a heart attack Medications and Allergies Home Medications Medication Instructions Recorded Confirmed Type Fluticasone/Salmeterol [Advair Hfa 1 puff INHALATION RT-BID 08/04/19 08/04/19 History 115-21 Mcg Inhaler] Ibuprofen 400 mg PO Q8H PRN 08/04/19 08/04/19 History Ipratropium/Albuter 20-100Mcg 1 puff INHALATION RT-QID 08/04/19 08/04/19 History [Combivent Respimat 20-100Mcg Inhaler] Lisinopril 40 mg PO DAILY 08/04/19 08/04/19 History Montelukast [Singulair] 10 mg PO DAILY PRN 08/04/19 08/04/19 History amLODIPine BESYLATE 5 mg PO DAILY 08/04/19 08/04/19 History Allergies Allergy/AdvReac Type Severity Reaction Status Date / Time No Known Allergies Allergy Verified 08/04/19 08:16 Physical Exam Vitals: Vital Signs Temp Pulse Pulse Resp BP Pulse Ox 08/06/19 11:27 100 08/06/19 11:16 100 08/06/19 08:19 104 H 08/06/19 08:07 100 08/06/19 08:06 100 08/06/19 07:56 100 08/06/19 05:00 98.3 F 99 16 144/80 91 L 08/05/19 21:08 108 H 18 08/05/19 21:00 97.9 F 105 H 18 146/71 91 L 08/05/19 20:57 104 H 18 08/05/19 20:56 104 H 18 08/05/19 20:47 105 H 18 08/05/19 16:18 112 H 08/05/19 16:07 112 H 08/05/19 12:59 98.9 F 124 H 16 152/72 94 L 08/05/19 12:57 108 H 08/05/19 12:43 100 Intake and Output 08/05/19 08/06/19 08/06/19 22:59 06:59 14:59 Intake Total 225 1190 Output Total 350 600 Balance -125 590 Intake: IV 225 600 Sodium Chloride 0.9% 1, 225 600 000 ml @ 75 mls/hr IV . [id number] [facility] Rx#:[id number] Oral 590 Output: Urine 350 600 Other: Voiding Method Urinal On examination is awake alert oriented cheerful HEENT exam no JVP neck is supple no facial asymmetry Lungs are clear to auscultation with fair air entry bilaterally Heart sounds are unremarkable for any murmur rub gallop Abdomen soft nontender no masses felt no ascites Extremity exam was no edema Neurologically awake alert oriented Results - Lab Results Most recent lab results ABG pH 7.45 (7.35-7.45) 08/05/19 12:36 ABG pCO2 32 mmHg (35-45) L 08/05/19 12:36 ABG pO2 61 mmHg (83-108) L 08/05/19 12:36 ABG HCO3 22 mmol/L (21-25) 08/05/19 12:36 ABG O2 Saturation 92.4 % (94-97) L 08/05/19 12:36 Calcium 9.2 mg/dL (8.4-10.2) 08/06/19 05:45 08/06/19 05:45 08/06/19 05:45 Assessment and Plan Plan: Impression 1. Chronic hyponatremia based on patient's history of having hyponatremia during previous right femur surgery 3 years ago at a different hospital. 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 His sodium was 126 on admission improved to 1:30 and then down to 129 this morning Other possibilities is malignancy because of the chronic smoking. TSH is normal. Urine studies are unavailable. Creatinine is 0.4. 2. COPD with history of smoking rule out malignancy 3. History of EtOH use on a daily basis watch for withdrawal 4. Fracture of left femur after a fall waiting for surgery, in pain. Recommendation 1. Water restriction to thousand cc. 2. Check urine osmolality urine creatinine and urine sodium. 3. Repeat labs tomorrow
--- NOTE | 2019-08-06 14:22 | P.PN ---
Subjective Progress Note Date: 08/06/19 Principal diagnosis: Acute comminuted intertrochanteric fracture of the left femur The patient is seen today 08/06/2019 in follow-up on the regular medical floor. He is currently sitting up in bed. Awake and alert in no acute distress. He denies any worsening shortness of breath, cough or congestion. His chest x-ray had shown some possible right lower lobe pneumonia. He is waiting clearance for an acute comminuted intertrochanteric fracture of the left femur. CT angiogram today ruled out pulmonary emboli. There is some bibasilar consolidation worse on the right. Emphysematous changes and interstitial fibrosis along the fissures bilaterally. There is a thoracic aortic aneurysm measuring 3.1 cm. White count 9.7. Hemoglobin 9.6. Sodium 129. Creatinine 0.42. He is continued on IV Solu-Medrol, bronchodilators, Levaquin. Objective - Vital Signs Vital signs: Vital Signs Temp 98.1 F 08/06/19 12:40 Pulse 129 H 08/06/19 12:40 Resp 16 08/06/19 12:40 BP 143/71 08/06/19 12:40 Pulse Ox 94 L 08/06/19 12:40 Intake & Output 08/05/19 08/06/19 08/06/19 18:59 06:59 18:59 Intake Total 150 1415 Output Total 950 Balance 150 465 Intake: IV 825 Sodium Chloride 0.9% 1, 825 000 ml @ 75 mls/hr IV . [id number] [facility] Rx#:[id number] Intake, IV Titration 150 Amount Sodium Chloride 0.9% 1, 150 000 ml @ 75 mls/hr IV . [id number] [facility] Rx#:[id number] Oral 590 Output: Urine 950 Other: Voiding Method Urinal - Exam GENERAL EXAM: Alert, pleasant 68-year-old gentleman, on 4 L nasal cannula. Afebrile. comfortable in no apparent distress. HEAD: Normocephalic. EYES: Normal reaction of pupils, equal size. NOSE: Clear with pink turbinates. THROAT: No erythema or exudates. NECK: No masses, no JVD. CHEST: No chest wall deformity. LUNGS: Equal air entry with few scattered rhonchi, end expiratory wheeze, diminished. CVS: S1 and S2 normal with no audible murmur, regular rhythm. ABDOMEN: No hepatosplenomegaly, normal bowel sounds, no guarding or rigidity. SPINE: No scoliosis or deformity SKIN: No rashes CENTRAL NERVOUS SYSTEM: No focal deficits, tone is normal in all 4 extremities. EXTREMITIES: Pain in the left hip. There is no peripheral edema. No clubbing, no cyanosis. Peripheral pulses are intact. - Labs CBC & Chem 7: 08/06/19 05:45 08/06/19 05:45 Labs: Abnormal Lab Results - Last 24 Hours (Table) 08/05/19 08/05/19 08/06/19 Range/Units 16:59 19:55 05:45 RBC 2.98 L (4.30-5.90) m/uL Hgb 9.6 L (13.0-17.5) gm/dL Hct 27.9 L (39.0-53.0) % Sodium (137-145) mmol/L Chloride (98-107) mmol/L Creatinine (0.66-1.25) mg/dL Glucose (74-99) mg/dL POC Glucose (mg/dL) 143 H 157 H (75-99) mg/dL Osmolality (280-301) mosm/kg 08/06/19 08/06/19 08/06/19 Range/Units 05:45 05:45 07:07 RBC (4.30-5.90) m/uL Hgb (13.0-17.5) gm/dL Hct (39.0-53.0) % Sodium 129 L (137-145) mmol/L Chloride 95 L (98-107) mmol/L Creatinine 0.42 L (0.66-1.25) mg/dL Glucose 137 H (74-99) mg/dL POC Glucose (mg/dL) 142 H (75-99) mg/dL Osmolality 270 L (280-301) mosm/kg 08/06/19 Range/Units 11:34 RBC (4.30-5.90) m/uL Hgb (13.0-17.5) gm/dL Hct (39.0-53.0) % Sodium (137-145) mmol/L Chloride (98-107) mmol/L Creatinine (0.66-1.25) mg/dL Glucose (74-99) mg/dL POC Glucose (mg/dL) 143 H (75-99) mg/dL Osmolality (280-301) mosm/kg Assessment and Plan Assessment: 1 Acute left intertrochanteric hip fracture, status post fall 2 Left hip pain secondary to above 3 Acute exacerbation of chronic obstructive pulmonary disease 4 Acute hypoxemic respiratory failure. CT angiogram ruled out pulmonary embolus. There is bibasilar consolidation worse on the right. Emphysematous changes as well as interstitial fibrosis most marketed along the fissures bilaterally. 5 Mild aneurysm dilatation ascending aorta measuring 3.1 cm 6 Chronic and ongoing tobacco dependence 7 Chronic alcohol use 8 Hypertension 9 Hyponatremia possibly related to EtOH 10 History of bladder cancer Plan: The patient was seen and evaluated by Dr. Grider Continue current pulmonary medications Titrate FiO2 as tolerated CT angiogram and labs reviewed Water restriction per nephrology He is cleared for surgery from the pulmonary standpoint I, the cosigning physician, performed a history & physical examination of the patient. Lungs sounds with few scattered rhonchi. Maintaining good O2 saturations in the 90s on 4 L/m per nasal cannula. I discussed the assessment and plan of care with my nurse practitioner, Shiloh Patel. I attest to the above note as dictated by her.
--- NOTE | 2019-08-06 14:41 | P.PN ---
Subjective 68-year-old male who was admitted for a hip fracture supposed to undergo surgical intervention today but patient went into respiratory distress respi ratory failure was hypoxic last night she is requiring 10 L of oxygen. Because of this patient probably can go to surgery today patient is not having any alcohol withdrawals. On exam patient is not wheezing patient was started on systemic steroids patient has a new infiltrate in the right lower lung martell because of which are patient was started on levofloxacin by pulmonary the. As he doesn't have any significant wheezing at I don't have a good explanation for his shortness of breath I'll obtain a BNP patient clinically doesn't appear to be in CHF exacerbation as well. We'll check the pulse ox on the earlobe and if still low will obtain an ABG and if ABG shows hypoxic respiratory failure then we will obtain a d-dimer and if it that's elevated patient Will obtain a CAT scan of the chest rule out pulmonary embolism which shows hypercapnic respiratory failure discontinued the breathing treatments and systemic steroids at that time. Patient although feels well looks clear denied any shortness of breath patient is not in respiratory distress clinically. 08/06/2019 Patient has highly elevated d-dimer will obtain a CT scan to rule out pulmonary embolism which did not show any pulmonary embolism I reviewed the CAT scans although it was read as pneumonia patient appears to have mostly thickened bronchus with very minimal infiltrate. Patient respiratory status overall although improved and is saturating at 94% on 4 L of oxygen Constitutional: Denied any fatigue denied any fever. Cardio vascular: denied any chest pain, palpitations Gastrointestinal denied any nausea vomiting Pulmonary: As mentioned in HPI Neurologic denied any new focal deficits All inpatient medications were reviewed and appropriate changes in these medications as dictated in the interval history and assessment and plan. Objective - Vital Signs Vital signs: Vital Signs Temp 98.1 F 08/06/19 12:40 Pulse 129 H 08/06/19 12:40 Resp 16 08/06/19 12:40 BP 143/71 08/06/19 12:40 Pulse Ox 94 L 08/06/19 12:40 Intake & Output 08/05/19 08/06/19 08/06/19 18:59 06:59 18:59 Intake Total 150 1415 Output Total 950 Balance 150 465 Intake: IV 825 Sodium Chloride 0.9% 1, 825 000 ml @ 75 mls/hr IV . [id number] [facility] Rx#:[id number] Intake, IV Titration 150 Amount Sodium Chloride 0.9% 1, 150 000 ml @ 75 mls/hr IV . [id number] [facility] Rx#:[id number] Oral 590 Output: Urine 950 Other: Voiding Method Urinal - Exam PHYSICAL EXAMINATION: GENERAL: The patient is alert and oriented x3, not in any acute distress. Thin built HEENT: Pupils are round and equally reacting to light. EOMI. No scleral icterus. No conjunctival pallor. Normocephalic, atraumatic. No pharyngeal erythema. No thyromegaly. CARDIOVASCULAR: S1 and S2 present. No murmurs, rubs, or gallops. PULMONARY: She has good air entry without any wheezing today. ABDOMEN: Soft, nontender, nondistended, normoactive bowel sounds. No palpable organomegaly. MUSCULOSKELETAL: No joint swelling or deformity. EXTREMITIES: No cyanosis, clubbing, or pedal edema. NEUROLOGICAL: Gross neurological examination did not reveal any focal deficits. SKIN: No rashes. - Labs CBC & Chem 7: 08/06/19 05:45 08/06/19 05:45 Labs: Abnormal Lab Results - Last 24 Hours (Table) 08/05/19 08/05/19 08/06/19 Range/Units 16:59 19:55 05:45 RBC 2.98 L (4.30-5.90) m/uL Hgb 9.6 L (13.0-17.5) gm/dL Hct 27.9 L (39.0-53.0) % Sodium (137-145) mmol/L Chloride (98-107) mmol/L Creatinine (0.66-1.25) mg/dL Glucose (74-99) mg/dL POC Glucose (mg/dL) 143 H 157 H (75-99) mg/dL Osmolality (280-301) mosm/kg 08/06/19 08/06/19 08/06/19 Range/Units 05:45 05:45 07:07 RBC (4.30-5.90) m/uL Hgb (13.0-17.5) gm/dL Hct (39.0-53.0) % Sodium 129 L (137-145) mmol/L Chloride 95 L (98-107) mmol/L Creatinine 0.42 L (0.66-1.25) mg/dL Glucose 137 H (74-99) mg/dL POC Glucose (mg/dL) 142 H (75-99) mg/dL Osmolality 270 L (280-301) mosm/kg 08/06/19 Range/Units 11:34 RBC (4.30-5.90) m/uL Hgb (13.0-17.5) gm/dL Hct (39.0-53.0) % Sodium (137-145) mmol/L Chloride (98-107) mmol/L Creatinine (0.66-1.25) mg/dL Glucose (74-99) mg/dL POC Glucose (mg/dL) 143 H (75-99) mg/dL Osmolality (280-301) mosm/kg Assessment and Plan Plan: -Acute respiratory failure mostly hypoxic secondary to pneumonia that can be a competent of hypercapnic respiratory failure from COPD continue with the systemic steroids inhalational treatments -Hyponatremia secondary to hypovolemia and possibility of beer potomania continuous IV fluids we'll Allsop in a BNP clinically patient doesn't have any elevated JVD -Preoperative clearance for left hip fracture. Patient was pretty status has worsened because of which patient it's probably not a good idea for him to go for surgery today we will monitor him clinically further management of his respiratory failure as mentioned above his respiratory status improves patient probably can go for surgery tomorrow -COPD with possible exacerbation continue with the inhaled steroids inhalational treatments systemic steroids were ordered. -Possibly of right lower lobe pneumonia for which patient was started on levofloxacin -Alcohol abuse: Counseling was provided, patient will be on Ativan CIWA protocol, post-surgery patient will be monitored closely. Patient is not having any withdrawals at this time -Hypertension continue amlodipine hold off lisinopril to avoid perioperative hypotension -History of bladder cancer in the past -DVT prophylaxis as per primary service -tachycardia probably secondary to hypoxemia: We'll obtain EKG appears to have sinus tach cardia clinically
[2019-08-06 14:54] LABS: Creatinine,Urine Random 46.9 mg/dL
[2019-08-06 16:50] LABS: Glucose,Whole Blood 153 mg/dL (75-99)
[2019-08-06 20:15] LABS: Glucose,Whole Blood 167 mg/dL (75-99)
[2019-08-07] MEDS: HYDROmorphone 1 MG/ML 1 ML SYRINGE IVP PRN ×3 (04:21→21:07)
[2019-08-07 06:28] LABS: African American GFR (CKD) >90 (>60 ml/min/1.73 sqM); Anion Gap 6 mmol/L; Blood Urea Nitrogen 14 mg/dL (9-20); Calcium 9.1 mg/dL (8.4-10.2); Carbon Dioxide 29 mmol/L (22-30); Chloride 95 mmol/L (98-107); Glucose 143 mg/dL (74-99); Non-African American GFR(CKD) >90 (>60 ml/min/1.73 sqM); Potassium 3.8 mmol/L (3.5-5.1); Sodium 130 mmol/L (137-145)
[2019-08-07 07:14] LABS: Glucose,Whole Blood 151 mg/dL (75-99)
[2019-08-07] MEDS: FORMOTEROL FUMARATE 20 MCG/2 ML NEBU INHALATION SCH ×2 (07:48→18:48)
[2019-08-07] MEDS: IPRATROPIUM-ALBUTEROL 3 ML NEB INHALATION SCH ×4 (07:48→18:48)
[2019-08-07] MEDS: BUDESONIDE 1 MG/2 ML NEBU INHALATION SCH ×2 (07:48→18:48)
[2019-08-07] MEDS: INSULIN ASPART (NovoLOG) 100 UNIT/ML VIAL SQ SCH ×4 (08:00→21:00)
[2019-08-07] MEDS: methylPREDNISolone SOD SUCCI 40 MG/ML 1 ML VIAL IV SCH ×2 (08:03→21:07)
[2019-08-07] MEDS: THIAMINE 100 MG TAB PO SCH ×2 (08:04→17:54)
[2019-08-07] MEDS: amLODIPine 5 MG TAB PO SCH (08:05)
[2019-08-07] MEDS: FAMOTIDINE 20 MG TAB PO SCH ×2 (08:05→21:07)
[2019-08-07] MEDS: LEVOFLOXACIN 500 MG TAB PO SCH (08:08)
--- NOTE | 2019-08-07 10:03 | P.PN ---
<Oskar Randolph - Last Filed: 08/07/19 10:02> Progress Note - Text Progress Note Date: 08/07/19 Orthopedics: History of present illness: Patient is a pleasant 68-year-old male who is seen and examined at bedside for further evaluation regards to his left intertrochanteric hip fracture status post fall. Patient did have evidence of a elevated d-dimer. A CT Angio of the chest was performed yesterday and was negative for pulmonary embolism. Since being seen and examined yesterday patient has been cleared by pulmonology and medicine for surgical intervention. He is scheduled for surgical intervention today, 08/07/2019 at approximately 12 PM. He is currently on 4 L of oxygen with saturations in the low 90s. He continues have significant pain in his left hip. He is not ambulatory. He is having significant difficulty with any active range of motion the left lower extremity. He is known to have sustained a fall on 08/03/2019 while standing on a table while painting falling directly on his left hip. He continues to have difficulty with hyponatremia and low chloride. Patient is eager for surgical intervention. He is nothing by mouth status in anticipation for surgical intervention today. Physical exam: Patient is awake, alert, and oriented 3 Vital signs stable Adequate chest excursion with deep inspiration and expiration; patient currently on 4 L of oxygen Left lower extremity is shortened and externally rotated Pain with palpation of the left hip Some swelling evident over the left lateral hip without erythema or bruising Significant pain with internal and external rotation of the left hip Significant difficulty with any range of motion of the left lower extremity. No pain with internal and external rotation of the right hip Neurovascularly intact bilateral lower extremities Dorsiflexion, plantarflexion, and extensor hallucis longus positive sustained on the right Patient is having difficulty with active dorsiflexion and plantarflexion on the left most difficult with dorsiflexion Calves are soft and supple; No signs or symptoms of DVT; No calf pain Pertinent studies: CT Angio of the chest taken on 07/29/2019: Examination is negative for pulmonary embolus; bibasilar consolidation greater on the right than the left; emphysematous change as well as interstitial fibrosis most marked along the fissures bilaterally Pertinent studies taken on 08/07/2019: Sodium 130 Chloride 95 Assessment: Left intertrochanteric hip fracture status post fall Left hip pain History of alcohol abuse COPD Hypertension History of bladder cancer Plan: 1. Patient has been discussed in detail Dr. Cortes Gomez in Dr. Travis Tomas. Since being seen and examined yesterday, patient has been cleared f or surgical intervention by pulmonology and medicine. We are currently planning for surgical intervention today, 08/07/2019, at 12 PM. Surgery is scheduled to be performed by Dr. Travis Tomas. Surgery has been boarded. We discussed surgery will be a left hip closed reduction and intramedullary nail fixation for left intertrochanteric hip fracture. Patient is eager to proceed forward with s urgical intervention. Patient is currently nothing by mouth status in anticipation for surgical intervention today. 2. Patient will continue his exam by medicine and pulmonology for his other medical diagnoses 3. Continue pain control with medications as prescribed while avoiding oral medications while the patient is nothing by mouth status <Travis Tomas - Last Filed: 08/07/19 20:50> Progress Note - Text The case was discussed in detail with the attending anesthesiologist will recommended postponing surgery until tomorrow with interval efforts to optimize pulmonary function. He may resume a normal diet we will plan for surgical stabilization tomorrow. Travis Tomas D.O. [facility]
[2019-08-07 11:50] LABS: Glucose,Whole Blood 142 mg/dL (75-99)
--- NOTE | 2019-08-07 13:49 | P.PN ---
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 He has had this probl em supposedly for a long time and surgery for his right hip fracture 3 years ago he was trace for the same problem He is also known with alcohol abuse and a smoker. Sodium was 126 improved to 1:30 and then went down to 129. He was started on fluid restriction. Unbeknownst to me and not sure how long he's been getting normal saline as well. I just started this morning. His urine sodium therefore is difficult to assess was 36 as of yesterday afternoon. His BUN is 14 and creatinine 0.37. His blood sugar is 143. Given that on normal saline and his sodium is 36, question of volume depletion is raised but there is no clinical scenario for this to occur Objective - Vital Signs Vital signs: Vital Signs Temp 98.4 F 08/07/19 11:46 Pulse 113 H 08/07/19 11:46 Resp 17 08/07/19 11:46 BP 162/75 08/07/19 11:46 Pulse Ox 94 L 08/07/19 11:46 Intake & Output 08/06/19 08/07/19 08/07/19 18:59 06:59 18:59 Intake Total 2100 0 Output Total 300 Balance 1800 0 Intake: IV 900 Sodium Chloride 0.9% 1, 900 000 ml @ 75 mls/hr IV . [id number] [facility] Rx#:[id number] Oral 1200 0 Output: Urine 300 Other: Voiding Method Urinal Urinal # Voids 4 3 On examination is awake alert oriented comfortable HEENT exam unremarkable no JVP neck is supple no facial asymmetry Lungs are clear to auscultation good air entry bilaterally Heart sounds are unremarkable for any murmur rub gallop Abdomen soft nontender Extremity exam was no edema Neurologically awake alert oriented - Labs CBC & Chem 7: 08/06/19 05:45 08/07/19 06:00 Labs: Abnormal Lab Results - Last 24 Hours (Table) 08/06/19 08/06/19 08/07/19 Range/Units 16:48 20:13 06:00 Sodium 130 L (137-145) mmol/L Chloride 95 L (98-107) mmol/L Creatinine 0.37 L (0.66-1.25) mg/dL Glucose 143 H (74-99) mg/dL POC Glucose (mg/dL) 153 H 167 H (75-99) mg/dL 08/07/19 08/07/19 Range/Units 07:13 11:48 Sodium (137-145) mmol/L Chloride (98-107) mmol/L Creatinine (0.66-1.25) mg/dL Glucose (74-99) mg/dL POC Glucose (mg/dL) 151 H 142 H (75-99) mg/dL Assessment and Plan Plan: Impression 1. Chronic hyponatremia based on patient's history of having hyponatremia during previous right femur surgery 3 years ago at a different hospital. Likely he has SIADH from pain or pain medications but there may be a component of alcoholism if he had this hyponatremia chronically. His sodium was 126 on admission improved to 130 and then down to 129. This morning it is 1:30 but he was on normal saline although there was no order for this time Other possibilities is malignancy because of the chronic smoking. TSH is normal. Creatinine is 0.4. BUN is 14 2. COPD with history of smoking rule out malignancy 3. History of EtOH use on a daily basis watch for withdrawal 4. Fracture of left femur after a fall waiting for surgery, in pain. Recommendation 1. Water restriction to thousand cc. 2. To ensure that his surgery is not canceled tomorrow will repeat his labs today and Repeat labs tomorrow 3. Discontinue the IV normal saline
[2019-08-07] MEDS: METOPROLOL TARTRATE 25 MG TAB PO SCH ×2 (14:08→21:07)
--- NOTE | 2019-08-07 14:26 | P.PN ---
Subjective 68-year-old male who was admitted for a hip fracture supposed to undergo surgical intervention today but patient went into respiratory distress respi ratory failure was hypoxic last night she is requiring 10 L of oxygen. Because of this patient probably can go to surgery today patient is not having any alcohol withdrawals. On exam patient is not wheezing patient was started on systemic steroids patient has a new infiltrate in the right lower lung martell because of which are patient was started on levofloxacin by pulmonary the. As he doesn't have any significant wheezing at I don't have a good explanation for his shortness of breath I'll obtain a BNP patient clinically doesn't appear to be in CHF exacerbation as well. We'll check the pulse ox on the earlobe and if still low will obtain an ABG and if ABG shows hypoxic respiratory failure then we will obtain a d-dimer and if it that's elevated patient Will obtain a CAT scan of the chest rule out pulmonary embolism which shows hypercapnic respiratory failure discontinued the breathing treatments and systemic steroids at that time. Patient although feels well looks clear denied any shortness of breath patient is not in respiratory distress clinically. 08/06/2019 Patient has highly elevated d-dimer will obtain a CT scan to rule out pulmonary embolism which did not show any pulmonary embolism I reviewed the CAT scans although it was read as pneumonia patient appears to have mostly thickened bronchus with very minimal infiltrate. Patient respiratory status overall although improved and is saturating at 94% on 4 L of oxygen 08/07/2019 Patient was not wearing oxygen and evaluate the patient patient doesn't appear to be in respiratory distress and evaluated the patient and patient also is complaining of pain in the hip area patient is cleared from pulmonology perspective for surgery. I believe patient should be able to undergo arthroplasty, risks was explained to the patient again today Constitutional: Denied any fatigue denied any fever. Cardio vascular: denied any chest pain, palpitations Gastrointestinal denied any nausea vomiting Pulmonary: As mentioned in HPI Neurologic denied any new focal deficits All inpatient medications were reviewed and appropriate changes in these medications as dictated in the interval history and assessment and plan. Objective - Vital Signs Vital signs: Vital Signs Temp 98.4 F 08/07/19 11:46 Pulse 113 H 08/07/19 11:46 Resp 17 08/07/19 11:46 BP 162/75 08/07/19 11:46 Pulse Ox 94 L 08/07/19 11:46 Intake & Output 08/06/19 08/07/19 08/07/19 18:59 06:59 18:59 Intake Total 2100 0 Output Total 300 Balance 1800 0 Intake: IV 900 Sodium Chloride 0.9% 1, 900 000 ml @ 75 mls/hr IV . [id number] [facility] Rx#:[id number] Oral 1200 0 Output: Urine 300 Other: Voiding Method Urinal Urinal # Voids 4 3 - Exam PHYSICAL EXAMINATION: GENERAL: The patient is alert and oriented x3, not in any acute distress. Thin built HEENT: Pupils are round and equally reacting to light. EOMI. No scleral icterus. No conjunctival pallor. Normocephalic, atraumatic. No pharyngeal erythema. No thyromegaly. CARDIOVASCULAR: S1 and S2 present. No murmurs, rubs, or gallops. PULMONARY: She has good air entry without any wheezing today. ABDOMEN: Soft, nontender, nondistended, normoactive bowel sounds. No palpable organomegaly. MUSCULOSKELETAL: No joint swelling or deformity. EXTREMITIES: No cyanosis, clubbing, or pedal edema. NEUROLOGICAL: Gross neurological examination did not reveal any focal deficits. SKIN: No rashes. - Labs CBC & Chem 7: 08/06/19 05:45 08/07/19 06:00 Labs: Abnormal Lab Results - Last 24 Hours (Table) 08/06/19 08/06/19 08/07/19 Range/Units 16:48 20:13 06:00 Sodium 130 L (137-145) mmol/L Chloride 95 L (98-107) mmol/L Creatinine 0.37 L (0.66-1.25) mg/dL Glucose 143 H (74-99) mg/dL POC Glucose (mg/dL) 153 H 167 H (75-99) mg/dL 08/07/19 08/07/19 Range/Units 07:13 11:48 Sodium (137-145) mmol/L Chloride (98-107) mmol/L Creatinine (0.66-1.25) mg/dL Glucose (74-99) mg/dL POC Glucose (mg/dL) 151 H 142 H (75-99) mg/dL Assessment and Plan Plan: -Acute respiratory failure mostly hypoxic secondary to pneumonia that can be a c ompetent of hypercapnic respiratory failure from COPD continue with the systemic steroids inhalational treatments -Hyponatremia may be due to SIADH from pain no significant improvement to his serum sodium -Preoperative clearance for left hip fracture. Patient probably should be able to undergo surgery but is still risk associated_explained the patient -COPD with possible exacerbation continue with the inhaled steroids inhalational treatments systemic steroids were ordered. -Possibly of right lower lobe pneumonia for which patient was started on levofloxacin CAT scan appears to be mostly bronchitis rather pneumonia -Alcohol abuse: Counseling was provided, patient will be on Ativan CIWA vincenzo col, post-surgery patient will be monitored closely. Patient is not having any withdrawals at this time -Hypertension continue amlodipine hold off lisinopril to avoid perioperative hypotension -Sinus tachycardia workup with a d-dimer and TSH, if they're abnormal further testing with a CAT scan to rule out PE will be done and the patient is presently and DVT prophylaxis. If all the testing was negative patient will be started on metoprolol -History of bladder cancer in the past -DVT prophylaxis as per primary service
--- NOTE | 2019-08-07 16:10 | P.PN ---
Subjective Progress Note Date: 08/07/19 Principal diagnosis: Acute comminuted intertrochanteric fracture of the left femur The patient is seen today 08/06/2019 in follow-up on the regular medical floor. He is currently sitting up in bed. Awake and alert in no acute distress. He denies any worsening shortness of breath, cough or congestion. His chest x-ray had shown some possible right lower lobe pneumonia. He is waiting clearance for an acute comminuted intertrochanteric fracture of the left femur. CT angiogram today ruled out pulmonary emboli. There is some bibasilar consolidation worse on the right. Emphysematous changes and interstitial fibrosis along the fissures bilaterally. There is a thoracic aortic aneurysm measuring 3.1 cm. White count 9.7. Hemoglobin 9.6. Sodium 129. Creatinine 0.42. He is continued on IV Solu-Medrol, bronchodilators, Levaquin. The patient is seen today 08/07/2019 in follow-up on the regular medical floor. He is awake and alert in no acute distress. Denies any shortness of breath, cough or congestion. No chest tightness or wheezing. Only complaint is that of left hip pain. He is maintaining O2 saturations in the low 90s on 4 L/m per nasal cannula. He is afebrile. Sodium 1:30. Potassium 3.8. Bicarb 29. Creatinine 0.37. He is continued on IV Solu-Medrol, bronchodilators, Singulair, Levaquin. Objective - Vital Signs Vital signs: Vital Signs Temp 98.4 F 08/07/19 11:46 Pulse 102 H 08/07/19 15:36 Resp 18 08/07/19 15:36 BP 162/75 08/07/19 11:46 Pulse Ox 93 L 08/07/19 15:27 Intake & Output 08/06/19 08/07/19 08/07/19 18:59 06:59 18:59 Intake Total 2100 0 Output Total 300 Balance 1800 0 Intake: IV 900 Sodium Chloride 0.9% 1, 900 000 ml @ 75 mls/hr IV . [id number] [facility] Rx#:[id number] Oral 1200 0 Output: Urine 300 Other: Voiding Method Urinal Urinal # Voids 4 3 5 - Exam GENERAL EXAM: Alert, pleasant 68-year-old gentleman, on 4 L nasal cannula. A febrile. comfortable in no apparent distress. HEAD: Normocephalic. EYES: Normal reaction of pupils, equal size. NOSE: Clear with pink turbinates. THROAT: No erythema or exudates. NECK: No masses, no JVD. CHEST: No chest wall deformity. LUNGS: Equal air entry with few scattered rhonchi, end expiratory wheeze, diminished. CVS: S1 and S2 normal with no audible murmur, regular rhythm. ABDOMEN: No hepatosplenomegaly, normal bowel sounds, no guarding or rigidity. SPINE: No scoliosis or deformity SKIN: No rashes CENTRAL NERVOUS SYSTEM: No focal deficits, tone is normal in all 4 extremities. EXTREMITIES: Pain in the left hip. There is no peripheral edema. No clubbing, no cyanosis. Peripheral pulses are intact. - Labs CBC & Chem 7: 08/06/19 05:45 08/07/19 06:00 Labs: Abnormal Lab Results - Last 24 Hours (Table) 08/06/19 08/06/19 08/07/19 Range/Units 16:48 20:13 06:00 Sodium 130 L (137-145) mmol/L Chloride 95 L (98-107) mmol/L Creatinine 0.37 L (0.66-1.25) mg/dL Glucose 143 H (74-99) mg/dL POC Glucose (mg/dL) 153 H 167 H (75-99) mg/dL 08/07/19 08/07/19 Range/Units 07:13 11:48 Sodium (137-145) mmol/L Chloride (98-107) mmol/L Creatinine (0.66-1.25) mg/dL Glucose (74-99) mg/dL POC Glucose (mg/dL) 151 H 142 H (75-99) mg/dL Assessment and Plan Assessment: 1 Acute left intertrochanteric hip fracture, status post fall 2 Left hip pain secondary to above 3 Acute exacerbation of chronic obstructive pulmonary disease 4 Acute hypoxemic respiratory failure. CT angiogram ruled out pulmonary e mbolus. There is bibasilar consolidation worse on the right. Emphysematous changes as well as interstitial fibrosis most marketed along the fissures bilaterally. 5 Mild aneurysm dilatation ascending aorta measuring 3.1 cm 6 Chronic and ongoing tobacco dependence 7 Chronic alcohol use 8 Hypertension 9 Hyponatremia possibly related to EtOH 10 History of bladder cancer Plan: The patient was seen and evaluated by Dr. Grider Continue current pulmonary medications Titrate FiO2 as tolerated He is cleared for surgery from the pulmonary standpoint I, the cosigning physician, performed a history & physical examination of the patient. Lungs sounds with few scattered rhonchi. Maintaining good O2 saturations in the 90s on 4 L/m per nasal cannula. I discussed the assessment and plan of care with my nurse practitioner, Shiloh Patel. I attest to the above note as dictated by her.
[2019-08-07 17:16] LABS: Glucose,Whole Blood 159 mg/dL (75-99)
[2019-08-07 17:47] LABS: Potassium 4.6 mmol/L (3.5-5.1)
[2019-08-07 20:35] LABS: Glucose,Whole Blood 130 mg/dL (75-99)
--- NOTE | 2019-08-07 22:15 | CT ---
EXAMINATION TYPE: CT hip LT wo con DATE OF EXAM: 08/07/2019 COMPARISON: Left hip x-ray dated 07/05/2019 HISTORY: Known left hip fracture CT DLP: 302.0 mGycm Automated exposure control for dose reduction was used. TECHNIQUE: Standard unenhanced CT was performed of the left hip without intravenous contrast. Three-D reformatted images were also obtained of the left hip and produced at a separate workstation for [facility]. FINDINGS: There is redemonstration of a known comminuted intertrochanteric fracture. There is approximately 1.5 cm medial displacement of the distal fracture fragment and 2.0 cm foreshortening. There is apex late ral angulation. The most distal fracture fragment is seen posteriorly with 1 cm diastases. No fractur e of the acetabulum is seen. No fracture of the superior nor inferior pubic ramus on the left is seen . There is edema of the left hip girdle musculature and a small joint effusion. Subcutaneous edema is also seen. Atherosclerosis is seen of the left external iliac artery and its branches. Intramuscular probable lipoma on image 56 of series 4 measures 1.5 cm and is without internal septati on or mural nodule. IMPRESSION: Redemonstration of the known left intertrochanteric acute comminuted displaced, apex late rally angulated, foreshortened left hip fracture. No additional fracture seen.
[2019-08-08] MEDS: TEMAZEPAM 15 MG CAP PO PRN (00:16)
[2019-08-08 06:28] LABS: HCT 29.5 % (39.0-53.0); HGB 9.8 gm/dL (13.0-17.5); MCH 31.5 pg (25.0-35.0); MCHC 33.3 g/dL (31.0-37.0); MCV 94.6 fL (80.0-100.0); Mean Platelet Volume 7.2; Platelet Count 280 k/uL (150-450); RBC 3.12 m/uL (4.30-5.90); RDW 13.3 % (11.5-15.5); WBC 9.8 k/uL (3.8-10.6)
[2019-08-08 06:37] LABS: African American GFR (CKD) >90 (>60 ml/min/1.73 sqM); Anion Gap 9 mmol/L; Blood Urea Nitrogen 15 mg/dL (9-20); Calcium 8.9 mg/dL (8.4-10.2); Carbon Dioxide 26 mmol/L (22-30); Chloride 95 mmol/L (98-107); Glucose 147 mg/dL (74-99); Non-African American GFR(CKD) >90 (>60 ml/min/1.73 sqM); Potassium 3.8 mmol/L (3.5-5.1); Sodium 130 mmol/L (137-145)
[2019-08-08 06:58] LABS: Glucose,Whole Blood 146 mg/dL (75-99)
[2019-08-08] MEDS: methylPREDNISolone SOD SUCCI 40 MG/ML 1 ML VIAL IV SCH ×2 (08:00→22:05)
[2019-08-08] MEDS: INSULIN ASPART (NovoLOG) 100 UNIT/ML VIAL SQ SCH ×4 (08:04→21:46)
[2019-08-08] MEDS: METOPROLOL TARTRATE 25 MG TAB PO SCH ×2 (08:07→22:05)
[2019-08-08] MEDS: LEVOFLOXACIN 500 MG TAB PO SCH (08:07)
[2019-08-08] MEDS: amLODIPine 5 MG TAB PO SCH (08:07)
[2019-08-08] MEDS: THIAMINE 100 MG TAB PO SCH ×2 (08:07→17:00)
[2019-08-08] MEDS: FAMOTIDINE 20 MG TAB PO SCH ×2 (08:07→22:05)
[2019-08-08] MEDS: IPRATROPIUM-ALBUTEROL 3 ML NEB INHALATION SCH ×4 (08:14→20:31)
[2019-08-08] MEDS: BUDESONIDE 1 MG/2 ML NEBU INHALATION SCH ×2 (08:14→20:31)
[2019-08-08] MEDS: FORMOTEROL FUMARATE 20 MCG/2 ML NEBU INHALATION SCH ×2 (08:14→20:31)
--- NOTE | 2019-08-08 08:43 | P.PN ---
Subjective Patient is seen in follow-up for hyponatremia. Sodium level fairly stable at 130 today. Scheduled for repair of the left hip fracture today. Denies chest pain or shortness of breath. Vital signs are stable. General: The patient appeared well nourished and normally developed. HEENT: Head exam is unremarkable. Neck is without jugular venous distension. LUNGS: Lungs are clear to auscultation and percussion. Breath sounds decreased. HEART: Rate and Rhythm are regular. First and second heart sounds normal. No murmurs, rubs or gallops. ABDOMEN: Abdominal exam reveals normal bowel sounds. Non-tender and non- distended. No evidence of peritonitis. EXTREMITITES: No clubbing, cyanosis, or edema. Objective - Vital Signs Vital signs: Vital Signs Temp 98.3 F 08/08/19 04:58 Pulse 86 08/08/19 08:34 Resp 20 08/08/19 04:58 BP 136/72 08/08/19 04:58 Pulse Ox 92 L 08/08/19 04:58 Intake & Output 08/07/19 08/08/19 08/08/19 18:59 06:59 18:59 Intake Total 1080 360 Output Total 300 900 Balance 780 -540 Intake: Oral 1080 360 Output: Urine 300 900 Other: Voiding Method Urinal Urinal # Voids 5 - Labs CBC & Chem 7: 08/08/19 05:37 08/08/19 05:37 Labs: Abnormal Lab Results - Last 24 Hours (Table) 08/07/19 08/07/19 08/07/19 Range/Units 11:48 17:15 17:21 RBC (4.30-5.90) m/uL Hgb (13.0-17.5) gm/dL Hct (39.0-53.0) % Sodium 131 L (137-145) mmol/L Chloride 95 L (98-107) mmol/L Creatinine (0.66-1.25) mg/dL Glucose (74-99) mg/dL POC Glucose (mg/dL) 142 H 159 H (75-99) mg/dL 08/07/19 08/08/19 08/08/19 Range/Units 20:34 05:37 05:37 RBC 3.12 L (4.30-5.90) m/uL Hgb 9.8 L (13.0-17.5) gm/dL Hct 29.5 L (39.0-53.0) % Sodium 130 L (137-145) mmol/L Chloride 95 L (98-107) mmol/L Creatinine 0.41 L (0.66-1.25) mg/dL Glucose 147 H (74-99) mg/dL POC Glucose (mg/dL) 130 H (75-99) mg/dL 08/08/19 Range/Units 06:56 RBC (4.30-5.90) m/uL Hgb (13.0-17.5) gm/dL Hct (39.0-53.0) % Sodium (137-145) mmol/L Chloride (98-107) mmol/L Creatinine (0.66-1.25) mg/dL Glucose (74-99) mg/dL POC Glucose (mg/dL) 146 H (75-99) mg/dL Assessment and Plan Plan: Assessment: 1. Hyponatremia. Appears euvolemic. 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 TSH normal. 2. Left hip fracture scheduled for surgical intervention today. 3. Alcohol abuse. 4. Benign hypertension. Controlled. Plan: Maintain 1.5L fluid restriction. Encouraged oral intake, particularly solute. Add ensure 3 times a day. Check uric acid level. Repeat electrolytes in the morning.
[2019-08-08 11:26] LABS: Glucose,Whole Blood 112 mg/dL (75-99)
[2019-08-08] MEDS ORDERED: LACTATED RINGERS 1,000 ML IV ONE ×2 (12:18→14:34)
[2019-08-08] MEDS ORDERED: fentaNYL (PF) 50 MCG/ML 2 ML AMP ONE (12:19)
[2019-08-08] MEDS ORDERED: MIDAZOLAM 2 MG/2 ML VIAL ONE (12:19)
[2019-08-08] MEDS ORDERED: PROPOFOL 10 MG/ML 20 ML VIAL IV ONE (12:19)
--- NOTE | 2019-08-08 13:53 | P.PN ---
Subjective Progress Note Date: 08/08/19 Principal diagnosis: 68-year-old male who was admitted for a hip fracture supposed to undergo surgical intervention today but patient went into respiratory distress respiratory failure was hypoxic last night she is requiring 10 L of oxygen. Because of this patient probably can go to surgery today patient is not having any alcohol withdrawals. On exam patient is not wheezing patient was started on systemic steroids patient has a new infiltrate in the right lower lung martell because of which are patient was started on levofloxacin by pulmonary the. As he doesn't have any significant wheezing at I don't have a good explanation for his shortness of breath I'll obtain a BNP patient clinically doesn't appear to be in CHF exacerbation as well. We'll check the pulse ox on the earlobe and if still low will obtain an ABG and if ABG shows hypoxic respiratory failure then we will obtain a d-dimer and if it that's elevated patient Will obtain a CAT scan of the chest rule out pulmonary embolism which shows hypercapnic respiratory failure discontinued the breathing treatments and systemic steroids at that time. Patient although feels well looks clear denied any shortness of breath patient is not in respiratory distress clinically. 08/06/2019 Patient has highly elevated d-dimer will obtain a CT scan to rule out pulmonary embolism which did not show any pulmonary embolism I reviewed the CAT scans although it was read as pneumonia patient appears to have mostly thickened bronchus with very minimal infiltrate. Patient respiratory status overall although improved and is saturating at 94% on 4 L of oxygen 08/07/2019 Patient was not wearing oxygen and evaluate the patient patient doesn't appear to be in respiratory distress and evaluated the patient and patient also is complaining of pain in the hip area patient is cleared from pulmonology perspective for surgery. I believe patient should be able to undergo arthroplasty, risks was explained to the patient again today. Patient had a normal TSH and no evidence of PE on the CAT scan. Patient was initiated on metoprolol. Constitutional: Denied any fatigue denied any fever. Cardio vascular: denied any chest pain, palpitations Gastrointestinal denied any nausea vomiting Pulmonary: As mentioned in HPI Neurologic denied any new focal deficits 08/08/2019 Patient is seen and evaluated in follow-up today with no acute overnight issues. Patient is currently resting comfortably but easily arousable on room air. Patient is scheduled to undergo surgical repair of left hip fracture with Dr. Tomas this afternoon. Currently nothing by mouth for the procedure. No reports of chest pain, shortness of breath, or palpitations. Patient is afebrile. No reports of nausea or vomiting at this time. Will continue to monitor closely. Sodium is 130 today. Will repeat a.m. labs. Nephrology following. Objective - Vital Signs Vital signs: Vital Signs Temp 98.3 F 08/08/19 11:00 Pulse 89 08/08/19 11:00 Resp 18 08/08/19 11:00 BP 163/74 08/08/19 11:00 Pulse Ox 94 L 08/08/19 11:00 Intake & Output 08/07/19 08/08/19 08/08/19 18:59 06:59 18:59 Intake Total 1080 360 100 Output Total 300 900 375 Balance 780 -540 -742 Weight 54.431 kg Intake: IV 100 Oral 1080 360 Output: Urine 300 900 375 Other: Voiding Method Urinal Urinal Urinal # Voids 5 - Exam GENERAL: The patient is alert and oriented x3, not in any acute distress. Thin built HEENT: Pupils are round and equally reacting to light. EOMI. No scleral icterus. No conjunctival pallor. Normocephalic, atraumatic. No pharyngeal erythema. No thyromegaly. CARDIOVASCULAR: S1 and S2 present. No murmurs, rubs, or gallops. PULMONARY: Positive bilateral air entry without any wheezing noted. ABDOMEN: Soft, nontender, nondistended, normoactive bowel sounds. No palpable organomegaly. MUSCULOSKELETAL: No joint swelling or deformity. EXTREMITIES: No cyanosis, clubbing, or pedal edema. Left hip discomfort NEUROLOGICAL: Gross neurological examination did not reveal any focal deficits. SKIN: No rashes. - Labs CBC & Chem 7: 08/08/19 05:37 08/08/19 05:37 Labs: Abnormal Lab Results - Last 24 Hours (Table) 08/07/19 08/07/19 08/07/19 Range/Units 17:15 17:21 20:34 RBC (4.30-5.90) m/uL Hgb (13.0-17.5) gm/dL Hct (39.0-53.0) % Sodium 131 L (137-145) mmol/L Chloride 95 L (98-107) mmol/L Creatinine (0.66-1.25) mg/dL Glucose (74-99) mg/dL POC Glucose (mg/dL) 159 H 130 H (75-99) mg/dL 08/08/19 08/08/19 08/08/19 Range/Units 05:37 05:37 06:56 RBC 3.12 L (4.30-5.90) m/uL Hgb 9.8 L (13.0-17.5) gm/dL Hct 29.5 L (39.0-53.0) % Sodium 130 L (137-145) mmol/L Chloride 95 L (98-107) mmol/L Creatinine 0.41 L (0.66-1.25) mg/dL Glucose 147 H (74-99) mg/dL POC Glucose (mg/dL) 146 H (75-99) mg/dL 08/08/19 Range/Units 11:19 RBC (4.30-5.90) m/uL Hgb (13.0-17.5) gm/dL Hct (39.0-53.0) % Sodium (137-145) mmol/L Chloride (98-107) mmol/L Creatinine (0.66-1.25) mg/dL Glucose (74-99) mg/dL POC Glucose (mg/dL) 112 H (75-99) mg/dL Assessment and Plan Assessment: -Acute respiratory failure mostly hypoxic secondary to pneumonia that can be a component of hypercapnic respiratory failure from COPD continue with the systemic steroids inhalational treatments -Hyponatremia may be due to SIADH from pain no significant improvement to his serum sodium. Sodium remains at 130 and nephrology following. -Preoperative clearance for left hip fracture. Patient cleared to undergo surgery although is still at risk and benefits versus risks associated have been discussed with the patient -COPD with possible exacerbation continue with the inhaled steroids inhalational treatments systemic steroids were ordered. -Possibly of right lower lobe pneumonia for which patient was started on levofloxacin. CAT scan appears to be mostly bronchitis rather pneumonia -Alcohol abuse: Counseling was provided, [facility], post-surgery patient will be monitored closely. Patient is not having any withdrawals at this time -Hypertension continue amlodipine hold off lisinopril to avoid perioperative and postoperative hypotension -Sinus tachycardia; d-dimer was slightly elevated at 2.53 CTA of the chest was done showing negative for any PE. Patient was initiated on metoprolol and h eart rate is currently in the 80s. -History of bladder cancer in the past -DVT prophylaxis as per primary service
[2019-08-08] MEDS ORDERED: LIDOCAINE 1%-EPI 1:100,000 20 ML VIAL SQ ONE ×2 (15:04)
[2019-08-08] MEDS ORDERED: ROPIVACAINE 5 MG/ML 30 ML VIAL MISCELLANE ONE ×2 (15:04)
[2019-08-08] MEDS ORDERED: HYDROcodone/APAP 5-325MG 1 EACH TAB PO PRN (15:31)
[2019-08-08] MEDS ORDERED: HYDROmorphone 0.5 MG/0.5 ML SYRINGE IVP PRN (15:40)
--- NOTE | 2019-08-08 15:53 | FL ---
Fluoroscopy INDICATION: Pain FINDINGS: Fluoroscopy time: 3 seconds. Images obtained: 6. IMPRESSIONS: 1. Documentation of fluoroscopy.
--- NOTE | 2019-08-08 16:10 | XR ---
EXAMINATION TYPE: XR femur LT DATE OF EXAM: 08/08/2019 COMPARISON: Left hip same date HISTORY: Status post open reduction internal fixation TECHNIQUE: AP view left femur FINDINGS: There is a left hip pin. Medullary tiffani is present. This transverses the proximal diaphyseal fracture. Small avulsion of the lesser trochanter may be present. There is a cortical fracture of the distal metadiaphyseal femur. Medullary tiffani extends to the knee wi th screws present. Note is made of vascular calcification. Postsurgical soft tissue changes are present. IMPRESSION: 1. Medullary tiffani in hip pin placement through a proximal diaphyseal fracture. 2. Small cortical fracture at the proximal screw of the distal medullary tiffani is present.
[2019-08-08] MEDS: HYDROcodone/APAP 5-325MG 1 EACH TAB PO PRN ×2 (16:57→22:04)
[2019-08-08 17:12] LABS: Glucose,Whole Blood 173 mg/dL (75-99)
--- NOTE | 2019-08-08 19:31 | XR ---
EXAMINATION TYPE: XR Hip Limited LT DATE OF EXAM: 08/08/2019 COMPARISON: Left femur same date HISTORY: Fracture TECHNIQUE: AP view left hip FINDINGS: Postsurgical changes are present. Medullary tiffani is present extending out of the field-of-vi ew. Hip pin is present. Proximal diaphyseal fractures evident. IMPRESSION: 1. Status post open reduction internal fixation at the left hip.
[2019-08-08 21:05] LABS: Glucose,Whole Blood 129 mg/dL (75-99)
[2019-08-09] MEDS: TEMAZEPAM 15 MG CAP PO PRN (00:50)
[2019-08-09] MEDS: HYDROcodone/APAP 5-325MG 1 EACH TAB PO PRN ×3 (05:49→19:11)
[2019-08-09 06:06] LABS: Basophils % (A) 0 %; Eosinophils % (A) 1 %; HGB 9.5 gm/dL (13.0-17.5); Lymphocytes # (A) 0.9 k/uL (1.0-4.8); Lymphocytes % (A) 9 %; MCH 31.9 pg (25.0-35.0); MCHC 33.8 g/dL (31.0-37.0); MCV 94.2 fL (80.0-100.0); Mean Platelet Volume 7.1; Monocytes # (A) 0.9 k/uL (0-1.0); Monocytes % (A) 9 %; Neutrophils # (A) 7.6 k/uL (1.3-7.7); Neutrophils % (A) 79 %; Platelet Count 324 k/uL (150-450); RBC 2.98 m/uL (4.30-5.90); RDW 13.5 % (11.5-15.5); WBC 9.6 k/uL (3.8-10.6)
[2019-08-09 06:14] LABS: African American GFR (CKD) >90 (>60 ml/min/1.73 sqM); Anion Gap 8 mmol/L; Blood Urea Nitrogen 13 mg/dL (9-20); Calcium 8.8 mg/dL (8.4-10.2); Carbon Dioxide 28 mmol/L (22-30); Chloride 94 mmol/L (98-107); Glucose 118 mg/dL (74-99); Non-African American GFR(CKD) >90 (>60 ml/min/1.73 sqM); Potassium 3.7 mmol/L (3.5-5.1); Sodium 130 mmol/L (137-145); Uric Acid 2.3 mg/dL (3.5-8.5)
[2019-08-09 06:49] LABS: Glucose,Whole Blood 134 mg/dL (75-99)
[2019-08-09] MEDS: IPRATROPIUM-ALBUTEROL 3 ML NEB INHALATION SCH ×4 (08:17→20:01)
[2019-08-09] MEDS: BUDESONIDE 1 MG/2 ML NEBU INHALATION SCH ×2 (08:17→20:01)
[2019-08-09] MEDS: FORMOTEROL FUMARATE 20 MCG/2 ML NEBU INHALATION SCH ×2 (08:17→20:14)
[2019-08-09] MEDS ORDERED: FUROSEMIDE 10 MG/ML 2 ML VIAL IV ONE (08:32)
--- NOTE | 2019-08-09 08:33 | P.PN ---
Subjective Patient is seen in follow-up for hyponatremia. Sodium level stable at 130 today. Status post left hip repair on August 07. No edema. Still not eating much. Vital signs are stable. General: The patient appeared well nourished and normally developed. HEENT: Head exam is unremarkable. Neck is without jugular venous distension. LUNGS: Lungs are clear to auscultation and percussion. Breath sounds decreased. HEART: Rate and Rhythm are regular. First and second heart sounds normal. No murmurs, rubs or gallops. ABDOMEN: Abdominal exam reveals normal bowel sounds. Non-tender and non- distended. No evidence of peritonitis. EXTREMITITES: No clubbing, cyanosis, or edema. Objective - Vital Signs Vital signs: Vital Signs Temp 97.6 F 08/09/19 05:08 Pulse 88 08/09/19 08:29 Resp 18 08/08/19 20:53 BP 154/76 08/09/19 05:08 Pulse Ox 91 L 08/09/19 05:08 Intake & Output 08/08/19 08/09/19 08/09/19 18:59 06:59 18:59 Intake Total 1475 1310 Output Total 2075 1600 Balance -600 -290 Weight 54.431 kg Intake: IV 1475 Sodium Chloride 0.9% 1, 375 000 ml @ 75 mls/hr IV . [id number] RUBI Rx#:[id number] Intake, IV Titration 50 Amount ceFAZolin 2 gm In Sodium 50 Chloride 0.9% 50 ml @ 100 mls/hr IVPB Q8HR RUBI Rx# :[id number] Oral 1260 Output: Urine 1975 1600 Estimated Blood Loss 100 Other: Voiding Method Urinal Indwelling Catheter - Labs CBC & Chem 7: 08/09/19 05:41 08/09/19 05:41 Labs: Abnormal Lab Results - Last 24 Hours (Table) 08/08/19 08/08/19 08/08/19 Range/Units 11:19 17:10 20:31 RBC (4.30-5.90) m/uL Hgb (13.0-17.5) gm/dL Hct (39.0-53.0) % Lymphocytes # (1.0-4.8) k/uL Sodium (137-145) mmol/L Chloride (98-107) mmol/L Creatinine (0.66-1.25) mg/dL Glucose (74-99) mg/dL POC Glucose (mg/dL) 112 H 173 H 129 H (75-99) mg/dL Uric Acid (3.5-8.5) mg/dL 08/09/19 08/09/19 08/09/19 Range/Units 05:41 05:41 06:48 RBC 2.98 L (4.30-5.90) m/uL Hgb 9.5 L (13.0-17.5) gm/dL Hct 28.0 L (39.0-53.0) % Lymphocytes # 0.9 L (1.0-4.8) k/uL Sodium 130 L (137-145) mmol/L Chloride 94 L (98-107) mmol/L Creatinine 0.38 L (0.66-1.25) mg/dL Glucose 118 H (74-99) mg/dL POC Glucose (mg/dL) 134 H (75-99) mg/dL Uric Acid 2.3 L (3.5-8.5) mg/dL Assessment and Plan Plan: Assessment: 1. Hyponatremia. Appears euvolemic. 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 TSH normal. Uric acid level suggestive of SIADH. Sodium level stable. 2. Left hip fracture status post surgical repair on August 07. 3. Alcohol abuse. 4. Benign hypertension. Controlled. Plan: Maintain 1.5L fluid restriction. Encouraged oral intake, particularly solute. Maintain ensure 3 times a day. Add sodium chloride tablets 1 g twice daily. Lasix 20 mg IV once today. Repeat electrolytes in the morning.
--- NOTE | 2019-08-09 09:44 | P.PN ---
Subjective Progress Note Date: 08/09/19 Principal diagnosis: Left hip fracture Patient is seen at bedside this morning. He is postop day #1 from left IT /gamma nail for left IT fracture. He has pain at the surgical site as expected but denies any new complaints. He denies numbness, tingling or calf pain. Review of systems is negative for fever, chills, chest pain, shortness of breath or other Objective - Vital Signs Vital signs: Vital Signs Temp 97.6 F 08/09/19 05:08 Pulse 90 08/09/19 08:41 Resp 18 08/08/19 20:53 BP 154/76 08/09/19 05:08 Pulse Ox 91 L 08/09/19 05:08 Intake & Output 08/08/19 08/09/19 08/09/19 18:59 06:59 18:59 Intake Total 1475 1310 Output Total 2075 1600 Balance -600 -290 Weight 54.431 kg Intake: IV 1475 Sodium Chloride 0.9% 1, 375 000 ml @ 75 mls/hr IV . [id number] RUBI Rx#:[id number] Intake, IV Titration 50 Amount ceFAZolin 2 gm In Sodium 50 Chloride 0.9% 50 ml @ 100 mls/hr IVPB Q8HR RUBI Rx# :[id number] Oral 1260 Output: Urine 1975 1600 Estimated Blood Loss 100 Other: Voiding Method Urinal Indwelling Catheter - Exam Inspection reveals a benign surgical wound. There is no active bleeding or drainage. Neurovascular status is intact throughout the lower extremity with motor and sensation grossly intact. Calf is soft and nontender. 2+ dorsalis pedis pulse and less than 2 second cap refill is present. - Constitutional General appearance: Present: no acute distress - Labs CBC & Chem 7: 08/09/19 05:41 08/09/19 05:41 Labs: Abnormal Lab Results - Last 24 Hours (Table) 08/08/19 08/08/19 08/08/19 Range/Units 11:19 17:10 20:31 RBC (4.30-5.90) m/uL Hgb (13.0-17.5) gm/dL Hct (39.0-53.0) % Lymphocytes # (1.0-4.8) k/uL Sodium (137-145) mmol/L Chloride (98-107) mmol/L Creatinine (0.66-1.25) mg/dL Glucose (74-99) mg/dL POC Glucose (mg/dL) 112 H 173 H 129 H (75-99) mg/dL Uric Acid (3.5-8.5) mg/dL 08/09/19 08/09/19 08/09/19 Range/Units 05:41 05:41 06:48 RBC 2.98 L (4.30-5.90) m/uL Hgb 9.5 L (13.0-17.5) gm/dL Hct 28.0 L (39.0-53.0) % Lymphocytes # 0.9 L (1.0-4.8) k/uL Sodium 130 L (137-145) mmol/L Chloride 94 L (98-107) mmol/L Creatinine 0.38 L (0.66-1.25) mg/dL Glucose 118 H (74-99) mg/dL POC Glucose (mg/dL) 134 H (75-99) mg/dL Uric Acid 2.3 L (3.5-8.5) mg/dL Assessment and Plan (1) Closed left hip fracture Narrative/Plan: He will continue with routine postop orthopedic protocol including pain ma nagement, wound care, PT, DVT prophylaxis and medical management. Expect that he will transfer to rehab in next few days Current Visit: Yes Status: Acute Priority: Medium Code(s): S72.002A - FR ACTURE OF UNSP PART OF NECK OF LEFT FEMUR, INIT SNOMED Code(s): 846491476 Time with Patient: Less than 30
[2019-08-09] MEDS: LEVOFLOXACIN 500 MG TAB PO SCH (10:13)
[2019-08-09] MEDS: methylPREDNISolone SOD SUCCI 40 MG/ML 1 ML VIAL IV SCH ×2 (10:13→20:09)
[2019-08-09] MEDS: THIAMINE 100 MG TAB PO SCH ×2 (10:13→18:01)
[2019-08-09] MEDS: INSULIN ASPART (NovoLOG) 100 UNIT/ML VIAL SQ SCH ×4 (10:13→20:10)
[2019-08-09] MEDS: METOPROLOL TARTRATE 25 MG TAB PO SCH ×2 (10:14→20:09)
[2019-08-09] MEDS: FAMOTIDINE 20 MG TAB PO SCH ×2 (10:14→20:10)
[2019-08-09] MEDS: amLODIPine 5 MG TAB PO SCH (10:14)
[2019-08-09] MEDS: ENOXAPARIN 40 MG/0.4 ML SYRINGE SQ SCH ×2 (10:14)
[2019-08-09] MEDS: SODIUM CHLORIDE TAB 1 GM TAB PO SCH ×2 (10:15→20:14)
--- NOTE | 2019-08-09 11:22 | P.OP ---
Date of Procedure: 08/08/19 Preoperative Diagnosis: 1. Comminuted, displaced left intertrochanteric (trans-trochanteric) femur fracture 2. Nicotine addiction/tobacco abuse Postoperative Diagnosis: 1. Comminuted, displaced left intertrochanteric (trans-trochanteric) femur fracture 2. Nicotine addiction/tobacco abuse Procedure(s) Performed: Closed reduction and surgical stabilization of left intertrochanteric femur fracture with cephalomedullary (IM) nailing. Implants: [employer] TFNA long proximal femoral nail, 130 11 mm x 380 mm; 95 mm helical blade and two (2) 5.0 mm distal locking screws. Anesthesia: spinal, other (with sedation) Surgeon: Travis Tomas Estimated Blood Loss (ml): 100 Condition: stable Disposition: PACU Indications for Procedure: The patient is a 68-year-old male who sustained a displaced left intertrochanteric femur fracture after a mechanical fall. Surgical treatment was recommended but was initially postponed due to poor pulmonary status. Risks and benefits of the procedure were discussed, including (but not limited to) the risks of infection, bleeding, anesthesia-related complications and blood clots. He expressed understanding and wished to proceed with surgery. Consent forms were signed. The surgical site was confirmed and marked preoperatively. Operative Findings: Complex trans-trochanteric fracture pattern numerous fracture lines, including a basicervical component, a large posterior wall fragment and comminution of the greater trochanter. Description of Procedure: The patient was brought to the operative suite by the anesthesia team. Spinal anesthesia was administered uneventfully. The patient was transferred to the operating table and positioned supine. The foot of the operative limb was secured in a well-padded boot and positioned straight. The contralateral limb was flexed, abducted and secured to a padded, well-leg russell. All bony prominences were padded in the typical fashion. Prophylactic antibiotics were administered. A time-out was performed, confirming patient identifiers, the operative side, site and procedure: all team members expressed agreement. The fracture was evaluated with intraoperative fluoroscopy. The fracture was manually reduced, confirmed on orthogonal images. The left lower extremity was then prepped and draped in standard, sterile fashion. A small stab incision was made proximal to the greater trochanter and a guidewire was inserted. Fluoroscopy was used to localize the starting point at the tip of the greater trochanter and the wire was advanced into the proximal femur. The initial position was found to be suboptimal and a second wire was inserted through a targeting guide. Better position was achieved and the first wire was removed. The skin incision was extended to accommodate the entry reamer, which was inserted through a tissue protector and advanced to the level of the lesser trochanter under fluoroscopic guidance. The reamer and guidewire were removed. Based on the patient's anatomy and fracture pattern, a long nail was chosen. A ball-tipped guidewire was then passed down the medullary canal, confirming insertion depth and intramedullary placement on imaging. After measuring length off the guidewire, sequential reaming was performed up to 12.5 mm. An 11 mm nail was selected and attached to the insertion handle. This passed easily down the medullary canal, confirming depth of insertion on imaging. The guidewire was removed. An incision was made laterally along the proximal thigh for placement of the cephalomedullary helical blade. A drill sleeve was inserted down to the lateral femoral cortex. A guidewire was advanced through the nail and into the femoral head. Position of the wire was confirmed on orthogonal views and adjusted to a satisfactory position. Measuring off the guidewire, a 95 mm blade was selected. Given the unstable fracture pattern, a second guidewire was introduced percutaneously and advanced into the femoral head for rotational control during drilling and blade insertion. A cannulated drill was used and the blade was inserted over the guidewire to the appropriate depth. The percutaneously placed wire was removed. The set screw was tightened to lock the blade in place, then slightly loosened to allow for dynamic compression. Fracture compression was applied through the lag screw insertion cannula, visually confirmed on imaging. No loss of reduction was appreciated during fracture compression. The insertion handle and aiming arm were removed. Attention was then turned to the distal locking screws. Utilizing perfect kiana technique, small skin incisions were made at the level of the dynamic and distal static holes. A drill was passed lateral to medial across the distal femur. The length was measured the screws were sequentially inserted. The more distal screw was slightly short and was exchanged for a longer screw which gained better purchase. Screw length and position were confirmed on orthogonal images. A small fracture of the medial cortex was noted at the tip of the more proximal screw. Final x-rays were obtained to confirm fracture reduction and implant position. The hip was evaluated with dynamic fluoroscopy: There was no appreciable motion of the fracture fragments or fixation construct with axial load, traction or circumduction, and the proximal femur moved as a single unit. All wounds were irrigated thoroughly with normal saline. The subcutaneous tissues were closed in layers: #1 Vicryl for the fascia; interrupted 0 Vicryl and 2-0 Vicryl sutures for the deep and superficial subcutaneous tissues. The skin was closed with gogo. The operative sites were injected with local anaesthetic with epinephrine for adjunctive postoperative pain control and hemostasis. Sterile dressings were applied. All sponge, needle and instrument c ounts were correct at the end of the procedure. The patient tolerated the procedure well. The patient was transferred to a hospital bed and transported to the recovery room in stable condition.
[2019-08-09 11:30] LABS: Glucose,Whole Blood 103 mg/dL (75-99)
[2019-08-09] MEDS ORDERED: SENNOSIDES 8.6 MG TAB PO PRN (11:51)
--- NOTE | 2019-08-09 13:58 | P.PN ---
Subjective Progress Note Date: 08/09/19 Principal diagnosis: Acute comminuted intertrochanteric fracture of the left femur The patient is seen today 08/06/2019 in follow-up on the regular medical floor. He is currently sitting up in bed. Awake and alert in no acute distress. He denies any worsening shortness of breath, cough or congestion. His chest x-ray had shown some possible right lower lobe pneumonia. He is waiting clearance for an acute comminuted intertrochanteric fracture of the left femur. CT angiogram today ruled out pulmonary emboli. There is some bibasilar consolidation worse on the right. Emphysematous changes and interstitial fibrosis along the fissures bilaterally. There is a thoracic aortic aneurysm measuring 3.1 cm. White count 9.7. Hemoglobin 9.6. Sodium 129. Creatinine 0.42. He is continued on IV Solu-Medrol, bronchodilators, Levaquin. The patient is seen today 08/07/2019 in follow-up on the regular medical floor. He is awake and alert in no acute distress. Denies any shortness of breath, cough or congestion. No chest tightness or wheezing. Only complaint is that of left hip pain. He is maintaining O2 saturations in the low 90s on 4 L/m per nasal cannula. He is afebrile. Sodium 130. Potassium 3.8. Bicarb 29. Creatinine 0.37. He is continued on IV Solu-Medrol, bronchodilators, Singulair, Levaquin. The patient is seen today 08/09/2019 in follow-up on the regular medical floor. He is status post closed reduction and surgical stabilization of left inter trochanteric femur fracture with supplemental medullary IM nailing postoperative day #1. He is currently sitting up in a chair at the bedside. He denies any shortness of breath, cough or congestion. Maintaining O2 saturations in the 90s on room air. He's been afebrile. Hemodynamically stable. Dressing to surgical site is clean dry well approximated. White count 9.6. Hemoglobin 9.5. Creatin ine 0.38. He remains on DuoNeb inhalations, Pulmicort and Perforomist inhalations, IV Solu-Medrol. He was given Lasix 20 mg IVP 1 today. Completed his cefazolin. Remains in the CIWA protocol. Objective - Vital Signs Vital signs: Vital Signs Temp 98.2 F 08/09/19 11:43 Pulse 82 08/09/19 12:21 Resp 17 08/09/19 11:43 BP 143/72 08/09/19 11:43 Pulse Ox 94 L 08/09/19 11:43 Intake & Output 08/08/19 08/09/19 08/09/19 18:59 06:59 18:59 Intake Total 1475 1310 Output Total 2075 1600 1600 Balance -600 -290 -1600 Weight 54.431 kg Intake: IV 1475 Sodium Chloride 0.9% 1, 375 000 ml @ 75 mls/hr IV . [id number] RUBI Rx#:[id number] Intake, IV Titration 50 Amount ceFAZolin 2 gm In Sodium 50 Chloride 0.9% 50 ml @ 100 mls/hr IVPB Q8HR RUBI Rx# :[id number] Oral 1260 Output: Urine 1975 1600 1600 Estimated Blood Loss 100 Other: Voiding Method Urinal Indwelling Catheter Indwelling Catheter - Exam GENERAL EXAM: Alert, pleasant 68-year-old gentleman, on room air. Afebrile. comfortable in no apparent distress. HEAD: Normocephalic. EYES: Normal reaction of pupils, equal size. NOSE: Clear with pink turbinates. THROAT: No erythema or exudates. NECK: No masses, no JVD. CHEST: No chest wall deformity. LUNGS: Equal air entry with few scattered rhonchi, end expiratory wheeze, diminished. CVS: S1 and S2 normal with no audible murmur, regular rhythm. ABDOMEN: No hepatosplenomegaly, normal bowel sounds, no guarding or rigidity. SPINE: No scoliosis or deformity SKIN: No rashes CENTRAL NERVOUS SYSTEM: No focal deficits, tone is normal in all 4 extremities. EXTREMITIES: Dressing to the left hip is dry and intact. There is trace peripheral edema. No clubbing, no cyanosis. Peripheral pulses are intact. - Labs CBC & Chem 7: 08/09/19 05:41 08/09/19 05:41 Labs: Abnormal Lab Results - Last 24 Hours (Table) 08/08/19 08/08/19 08/09/19 Range/Units 17:10 20:31 05:41 RBC (4.30-5.90) m/uL Hgb (13.0-17.5) gm/dL Hct (39.0-53.0) % Lymphocytes # (1.0-4.8) k/uL Sodium 130 L (137-145) mmol/L Chloride 94 L (98-107) mmol/L Creatinine 0.38 L (0.66-1.25) mg/dL Glucose 118 H (74-99) mg/dL POC Glucose (mg/dL) 173 H 129 H (75-99) mg/dL Uric Acid 2.3 L (3.5-8.5) mg/dL 08/09/19 08/09/19 08/09/19 Range/Units 05:41 06:48 11:29 RBC 2.98 L (4.30-5.90) m/uL Hgb 9.5 L (13.0-17.5) gm/dL Hct 28.0 L (39.0-53.0) % Lymphocytes # 0.9 L (1.0-4.8) k/uL Sodium (137-145) mmol/L Chloride (98-107) mmol/L Creatinine (0.66-1.25) mg/dL Glucose (74-99) mg/dL POC Glucose (mg/dL) 134 H 103 H (75-99) mg/dL Uric Acid (3.5-8.5) mg/dL Assessment and Plan Assessment: 1 Acute left intertrochanteric hip fracture from fall, status post closed reduction and surgical stabilization of the left intertrochanteric femur fractur e with cephalomedullary (IM) nailing, postoperative day #1 2 Left hip pain secondary to above 3 Acute exacerbation of chronic obstructive pulmonary disease 4 Acute hypoxemic respiratory failure. CT angiogram ruled out pulmonary embolus. There is bibasilar consolidation worse on the right. Emphysematous changes as well as interstitial fibrosis most marketed along the fissures bilaterally. 5 Mild aneurysm dilatation ascending aorta measuring 3.1 cm 6 Chronic and ongoing tobacco dependence 7 Chronic alcohol use 8 Hypertension 9 Hyponatremia possibly related to EtOH 10 History of bladder cancer Plan: The patient was seen and evaluated by Dr. Gifty Perez from the pulmonary standpoint. Continue current pulmonary medications Encourage increased use of the incentive spirometer Increase activity as tolerated We'll continue to follow I, the cosigning physician, performed a history & physical examination of the patient. Lungs sounds with few scattered rhonchi, end expiratory wheeze, diminished. Maintaining good O2 saturations in the 90s on room air. I disc ussed the assessment and plan of care with my nurse practitioner, Shiloh Patel. I attest to the above note as dictated by her.
--- NOTE | 2019-08-09 14:28 | P.PN ---
Subjective Progress Note Date: 08/09/19 Principal diagnosis: 68-year-old male who was admitted for a hip fracture supposed to undergo surgical intervention today but patient went into respiratory distress respiratory failure was hypoxic last night she is requiring 10 L of oxygen. Because of this patient probably can go to surgery today patient is not having any alcohol withdrawals. On exam patient is not wheezing patient was started on systemic steroids patient has a new infiltrate in the right lower lung martell because of which are patient was started on levofloxacin by pulmonary the. As he doesn't have any significant wheezing at I don't have a good explanation for his shortness of breath I'll obtain a BNP patient clinically doesn't appear to be in CHF exacerbation as well. We'll check the pulse ox on the earlobe and if still low will obtain an ABG and if ABG shows hypoxic respiratory failure then we will obtain a d-dimer and if it that's elevated patient Will obtain a CAT scan of the chest rule out pulmonary embolism which shows hypercapnic respiratory failure discontinued the breathing treatments and systemic steroids at that time. Patient although feels well looks clear denied any shortness of breath patient is not in respiratory distress clinically. 08/06/2019 Patient has highly elevated d-dimer will obtain a CT scan to rule out pulmonary embolism which did not show any pulmonary embolism I reviewed the CAT scans although it was read as pneumonia patient appears to have mostly thickened bronchus with very minimal infiltrate. Patient respiratory status overall although improved and is saturating at 94% on 4 L of oxygen 08/07/2019 Patient was not wearing oxygen and evaluate the patient patient doesn't appear to be in respiratory distress and evaluated the patient and patient also is complaining of pain in the hip area patient is cleared from pulmonology perspective for surgery. I believe patient should be able to undergo arthroplasty, risks was explained to the patient again today. Patient had a normal TSH and no evidence of PE on the CAT scan. Patient was initiated on metoprolol. Constitutional: Denied any fatigue denied any fever. Cardio vascular: denied any chest pain, palpitations Gastrointestinal denied any nausea vomiting Pulmonary: As mentioned in HPI Neurologic denied any new focal deficits 08/08/2019 Patient is seen and evaluated in follow-up today with no acute overnight issues. Patient is currently resting comfortably but easily arousable on room air. Patient is scheduled to undergo surgical repair of left hip fracture with Dr. Tomas this afternoon. Currently nothing by mouth for the procedure. No reports of chest pain, shortness of breath, or palpitations. Patient is afebrile. No reports of nausea or vomiting at this time. Will continue to monitor closely. Sodium is 130 today. Will repeat a.m. labs. Nephrology following. 08/09/2019 Patient is seen in follow-up today sitting in the chair and appears to be in no acute distress. No acute overnight issues. Patient denies abdominal discomfort but is also stating he has not had a bowel movement for the last 6 days and would like something for this. Senokot ordered. Patient underwent left IT nail placement for left IT fracture. Surgical dressing is dry and intact. Tenderness is noted upon palpation with no increasing erythema noted. No reports of chest pain, shortness of breath, or palpitations. Patient is afebrile. Patient's sodium remains 1:30 today and was started on sodium tablets. will repeat labs. Nephrology is following. Objective - Vital Signs Vital signs: Vital Signs Temp 98.2 F 08/09/19 11:43 Pulse 82 08/09/19 12:21 Resp 17 08/09/19 11:43 BP 143/72 08/09/19 11:43 Pulse Ox 94 L 08/09/19 11:43 Intake & Output 08/08/19 08/09/19 08/09/19 18:59 06:59 18:59 Intake Total 1475 1310 Output Total 2075 1600 1600 Balance -600 -290 -1600 Weight 54.431 kg Intake: IV 1475 Sodium Chloride 0.9% 1, 375 000 ml @ 75 mls/hr IV . [id number] RUBI Rx#:[id number] Intake, IV Titration 50 Amount ceFAZolin 2 gm In Sodium 50 Chloride 0.9% 50 ml @ 100 mls/hr IVPB Q8HR RUBI Rx# :[id number] Oral 1260 Output: Urine 1975 1600 1600 Estimated Blood Loss 100 Other: Voiding Method Urinal Indwelling Catheter Indwelling Catheter - Exam GENERAL: The patient is alert and oriented x3, not in any acute distress. Thin built HEENT: Pupils are round and equally reacting to light. EOMI. No scleral icterus. No conjunctival pallor. Normocephalic, atraumatic. No pharyngeal erythema. No thyromegaly. CARDIOVASCULAR: S1 and S2 present. No murmurs, rubs, or gallops. PULMONARY: Positive bilateral air entry without any wheezing noted. ABDOMEN: Soft, nontender, nondistended, normoactive bowel sounds. No palpable organomegaly. MUSCULOSKELETAL: No joint swelling or deformity. EXTREMITIES: No cyanosis, clubbing, or pedal edema. Left hip surgical dressing is dry and intact with no erythema noted of the left hip dressing and some mild bruising noted around the left lower femur dressing that is dry and intact NEUROLOGICAL: Gross neurological examination did not reveal any focal deficits. SKIN: No rashes. - Labs CBC & Chem 7: 08/09/19 05:41 08/09/19 05:41 Labs: Abnormal Lab Results - Last 24 Hours (Table) 08/08/19 08/08/19 08/09/19 Range/Units 17:10 20:31 05:41 RBC (4.30-5.90) m/uL Hgb (13.0-17.5) gm/dL Hct (39.0-53.0) % Lymphocytes # (1.0-4.8) k/uL Sodium 130 L (137-145) mmol/L Chloride 94 L (98-107) mmol/L Creatinine 0.38 L (0.66-1.25) mg/dL Glucose 118 H (74-99) mg/dL POC Glucose (mg/dL) 173 H 129 H (75-99) mg/dL Uric Acid 2.3 L (3.5-8.5) mg/dL 08/09/19 08/09/19 08/09/19 Range/Units 05:41 06:48 11:29 RBC 2.98 L (4.30-5.90) m/uL Hgb 9.5 L (13.0-17.5) gm/dL Hct 28.0 L (39.0-53.0) % Lymphocytes # 0.9 L (1.0-4.8) k/uL Sodium (137-145) mmol/L Chloride (98-107) mmol/L Creatinine (0.66-1.25) mg/dL Glucose (74-99) mg/dL POC Glucose (mg/dL) 134 H 103 H (75-99) mg/dL Uric Acid (3.5-8.5) mg/dL Assessment and Plan Assessment: -Acute respiratory failure mostly hypoxic secondary to pneumonia that can be a component of hypercapnic respiratory failure from COPD continue with the systemic steroids inhalational treatments -Hyponatremia may be due to SIADH from pain no significant improvement to his serum sodium. Sodium remains at 130 and nephrology following. Patient initiated on sodium tabs and will repeat a.m. labs -Preoperative clearance for left hip fracture. -Status post left IT nail placement for left IT femur fracture, postop day #1 -COPD with possible exacerbation -Possibly of right lower lobe pneumonia for which patient was started on levofloxacin. CAT scan appears to be mostly bronchitis rather pneumonia -Alcohol abuse: Counseling was provided. Patient is not having any withdrawals at this time -Hypertension continue amlodipine -Sinus tachycardia; improved -History of bladder cancer in the past -DVT prophylaxis as per primary service
[2019-08-09 17:04] LABS: Glucose,Whole Blood 170 mg/dL (75-99)
[2019-08-09 20:03] LABS: Glucose,Whole Blood 164 mg/dL (75-99)
[2019-08-09] MEDS: DOCUSATE 100 MG CAP PO SCH (20:10)
[2019-08-10] MEDS: HYDROcodone/APAP 5-325MG 1 EACH TAB PO PRN ×2 (00:41→09:31)
[2019-08-10 04:27] VITALS: BP 167/74; RESP 16; TEMP 97.6
[2019-08-10 06:56] LABS: Glucose,Whole Blood 104 mg/dL (75-99)
[2019-08-10 07:15] LABS: African American GFR (CKD) >90 (>60 ml/min/1.73 sqM); Anion Gap 8 mmol/L; Blood Urea Nitrogen 17 mg/dL (9-20); Calcium 8.6 mg/dL (8.4-10.2); Carbon Dioxide 29 mmol/L (22-30); Chloride 93 mmol/L (98-107); Glucose 91 mg/dL (74-99); Non-African American GFR(CKD) >90 (>60 ml/min/1.73 sqM); Potassium 3.6 mmol/L (3.5-5.1); Sodium 130 mmol/L (137-145)
[2019-08-10] MEDS: BUDESONIDE 1 MG/2 ML NEBU INHALATION SCH (07:23)
[2019-08-10] MEDS: FORMOTEROL FUMARATE 20 MCG/2 ML NEBU INHALATION SCH (07:23)
[2019-08-10] MEDS: IPRATROPIUM-ALBUTEROL 3 ML NEB INHALATION SCH ×2 (07:23→10:52)
[2019-08-10] MEDS: INSULIN ASPART (NovoLOG) 100 UNIT/ML VIAL SQ SCH (07:32)
--- NOTE | 2019-08-10 08:21 | P.PN ---
Subjective Patient is seen in follow-up for hyponatremia. Sodium level stable at 130 today. Status post left hip repair on August 07. No edema. Oral intake gradually improving. Vital signs are stable. General: The patient appeared well nourished and normally developed. HEENT: Head exam is unremarkable. Neck is without jugular venous distension. LUNGS: Lungs are clear to auscultation and percussion. Breath sounds decreased. HEART: Rate and Rhythm are regular. ABDOMEN: Nontender. EXTREMITITES: No clubbing, cyanosis, or edema. Objective - Vital Signs Vital signs: Vital Signs Temp 97.6 F 08/10/19 04:26 Pulse 82 08/10/19 07:46 Resp 16 08/10/19 04:26 BP 167/74 08/10/19 04:26 Pulse Ox 94 L 08/10/19 04:26 Intake & Output 08/09/19 08/10/19 08/10/19 18:59 06:59 18:59 Intake Total 780 Output Total 1600 1000 Balance -820 -1000 Intake: Oral 780 Output: Urine 1600 1000 Uretheral (Lewis) 1000 Other: Voiding Method Indwelling Catheter Indwelling Catheter # Voids 2 # Bowel Movements 1 - Labs CBC & Chem 7: 08/09/19 05:41 08/10/19 05:49 Labs: Abnormal Lab Results - Last 24 Hours (Table) 08/09/19 08/09/19 08/09/19 Range/Units 11:29 17:03 20:01 Sodium (137-145) mmol/L Chloride (98-107) mmol/L Creatinine (0.66-1.25) mg/dL POC Glucose (mg/dL) 103 H 170 H 164 H (75-99) mg/dL 08/10/19 08/10/19 Range/Units 05:49 06:55 Sodium 130 L (137-145) mmol/L Chloride 93 L (98-107) mmol/L Creatinine 0.44 L (0.66-1.25) mg/dL POC Glucose (mg/dL) 104 H (75-99) mg/dL Assessment and Plan Plan: Assessment: 1. Hyponatremia. Appears euvolemic. 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 TSH normal. Uric acid level suggestive of SIADH. Sodium level stable. 2. Left hip fracture status post surgical repair on March 30. 3. Alcohol abuse. 4. Benign hypertension. Controlled. Plan: Maintain 1.5L fluid restriction. Encouraged oral intake, particularly solute. Maintain ensure 3 times a day. Continue sodium chloride tablets 1 g twice daily. Samsca 15 mg once today.
[2019-08-10] MEDS ORDERED: TOLVAPTAN 15 MG 1/2 TABLET PO ONE (09:00)
[2019-08-10] MEDS: METOPROLOL TARTRATE 25 MG TAB PO SCH (09:31)
[2019-08-10] MEDS: FAMOTIDINE 20 MG TAB PO SCH (09:31)
[2019-08-10] MEDS: SODIUM CHLORIDE TAB 1 GM TAB PO SCH (09:31)
[2019-08-10] MEDS: THIAMINE 100 MG TAB PO SCH (09:31)
[2019-08-10] MEDS: amLODIPine 5 MG TAB PO SCH (09:31)
[2019-08-10] MEDS: DOCUSATE 100 MG CAP PO SCH (09:31)
[2019-08-10] MEDS: LEVOFLOXACIN 500 MG TAB PO SCH (09:31)
[2019-08-10] MEDS: methylPREDNISolone SOD SUCCI 40 MG/ML 1 ML VIAL IV SCH (09:32)
[2019-08-10] MEDS: ENOXAPARIN 40 MG/0.4 ML SYRINGE SQ SCH (09:32)
[2019-08-10 11:04] VITALS: PULSE 92
--- NOTE | 2019-08-10 12:24 | P.DS ---
Providers Date of admission: 08/04/19 00:42 Expected date of discharge: 08/10/19 Attending physician: Cortes Gomez Consults: 08/04/19 00:43 Consult Physician Routine Consulting Provider: Jose Schafer Consult Reason/Comments: medical management Do you want consulting provider notified?: Yes 08/05/19 08:24 Consult Physician Urgent Consulting Provider: Eric Grider Consult Reason/Comments: decreased pulse ox, right infiltrate Do you want consulting provider notified?: Yes 08/06/19 10:18 Consult Physician Routine Consulting Provider: German Odell Consult Reason/Comments: hyponatremia Do you want consulting provider notified?: Yes Primary care physician: Stated None Hospital Course: Final diagnosis -Acute respiratory failure mostly hypoxic secondary to pneumonia that can be a component of hypercapnic respiratory failure from COPD -Hyponatremia may be due to SIADH from pain -Preoperative clearance for left hip fracture. -Status post left IT nail placement for left IT femur fracture -COPD with possible exacerbation -Possibly of right lower lobe pneumonia -Alcohol abuse -Hypertension -Sinus tachycardia -History of bladder cancer in the past -DVT prophylaxis Discharge disposition Patient is being discharged in a stable condition with guarded prognosis to home and will have home care and outpatient physical therapy. Patient will continue on a prednisone taper along with sodium tablets and Lasix. Patient will need to follow-up with primary care provider along with nephrology and orthopedics in the outpatient setting. Total time taken is 35 minutes. History of present illness This is a 68-year-old male who was recently admitted for recent fall and had a left hip fracture requiring surgical intervention and was being closely monitore d. Patient had some acute respiratory failure and hypoxia with acute exacerbation of COPD. Patient was also slightly tachycardic and hyponatremic and being evaluated by multiple medical consultations. Sodium currently 130 and patient has been placed on sodium tablets and will continue in the outpatient setting along with Lasix 20 mg daily. Patient does use inhalers at home for COPD and will continue with these at this time along with a prednisone taper. Patient did complete a course of Levaquin for possible pneumonia during hospitalization. Patient is refusing rehab status post surgery and will continue with home care in the outpatient setting for physical therapy. His cussed with the patient at length about continuing to avoid tobacco and alcohol use in the outpatient setting. Patient also instructed to continue using his incentive spirometer at least 10 times every hour while awake. Patient instructed to follow-up with primary care provider upon discharge and nephrology in 1-2 weeks with recommended repeat labs to monitor sodium. No reports of chest pain, shortness of breath, or palpitations. Patient is afebrile. No reports of nausea or vomiting and patient is tolerating diet. Patient will be discharged home with home care today. On exam vital signs are stable. Temp is 97.6F, pulse is 82, respirations are 16, blood pressure is 167/74, oxygen saturation is 93-94% on room air. Cardio S1, S2 are muffled. Respiratory shows diminished breath sounds at the bases with some expiratory wheezing noted. Abdomen is soft and nontender. Nervous system shows no focal deficits. Please refer to medication reconciliation sheet for a list of medications. Patient Condition at Discharge: Fair Plan - Discharge Summary Discharge Rx Participant: No New Discharge Prescriptions: New Aspirin 325 mg PO BID 30 Days #60 tab Enoxaparin [Lovenox] 40 mg SQ DAILY #10 syringe Hydrocodone/Acetaminophen [[place] 5-325] 1 tab PO Q4-6H PRN 7 Days #40 tab PRN Reason: Pain Metoprolol Tartrate [Lopressor] 25 mg PO BID 30 Days #60 tab predniSONE 10 mg PO DIRECTED #30 tab Sodium Chloride Tab 1 gm PO BID 30 Days #60 tab Thiamine [Vitamin B-1] 100 mg PO DAILY 30 Days #30 tab Continue amLODIPine BESYLATE 5 mg PO DAILY Montelukast [Singulair] 10 mg PO DAILY PRN PRN Reason: Allergy Symptoms Ipratropium/Albuter 20-100Mcg [Combivent Respimat 20-100Mcg Inhaler] 1 puff INHALATION RT-QID Fluticasone/Salmeterol [Advair Hfa 115-21 Mcg Inhaler] 1 puff INHALATION RT- BID Discontinued Lisinopril 40 mg PO DAILY Ibuprofen 400 mg PO Q8H PRN PRN Reason: Pain Discharge Medication List Fluticasone/Salmeterol [Advair Hfa 115-21 Mcg Inhaler] 1 puff INHALATION RT-BID 08/04/19 [History] Ipratropium/Albuter 20-100Mcg [Combivent Respimat 20-100Mcg Inhaler] 1 puff INHALATION RT-QID 08/04/19 [History] Montelukast [Singulair] 10 mg PO DAILY PRN 08/04/19 [History] amLODIPine BESYLATE 5 mg PO DAILY 08/04/19 [History] Aspirin 325 mg PO BID 30 Days #60 tab 08/10/19 [Rx] Enoxaparin [Lovenox] 40 mg SQ DAILY #10 syringe 08/10/19 [Rx] Hydrocodone/Acetaminophen [[place] 5-325] 1 tab PO Q4-6H PRN 7 Days #40 tab 08/10/19 [Rx] Metoprolol Tartrate [Lopressor] 25 mg PO BID 30 Days #60 tab 08/10/19 [Rx] Sodium Chloride Tab 1 gm PO BID 30 Days #60 tab 08/10/19 [Rx] Thiamine [Vitamin B-1] 100 mg PO DAILY 30 Days #30 tab 08/10/19 [Rx] predniSONE 10 mg PO DIRECTED #30 tab 08/10/19 [Rx] Follow up Appointment(s)/Referral(s): Travis Tomas DO [Medical Doctor] - 08/30/19 1:10 pm (Patient may follow-up with Dr. Tomas at [facility] in 2-3 weeks following discharge. ) None,Stated [Primary Care Provider] - 1-2 days German Odell DO [STAFF PHYSICIAN] - 1 Week (Office will be contact upon discharge to set up a follow up appointment) Ambulatory/Diagnostic Orders: Basic Metabolic Panel [LAB.AMB] Time Frame: 3 Days, Location: None Selected Magnesium [LAB.AMB] Time Frame: 3 Days, Location: None Selected Activity/Diet/Wound Care/Special Instructions: Toe-touch weightbearing on your operative leg. Up with assistance, up with a walker. Take pain medications as prescribed. Take Lovenox and aspirin as prescribed; take Lovenox for 10 days, then transition to aspirin 325 mg twice a day for 30 days. Keep incisions covered. Daily dressing changes. Follow-up in the office of Dr. Tomas in 2 weeks. Call the office if any questions or concerns, [phone] Follow-up with primary care provider upon discharge Continue avoiding alcohol intake Continue with inhalers and prednisone taper Continue with home care Continue current diet Repeat labs in 2-3 days Discharge Disposition: HOME WITH HOME HEALTH SERVICES
--- NOTE | 2019-08-10 12:48 | P.PN ---
Subjective Progress Note Date: 08/10/19 This patient is a 68-year-old male that is status-post left closed reduction and surgical stabilization of left intertrochanteric femur fracture with IM nail on 08/08/[address] Tomas. Today is postoperative day #2. The patient was examined bedside. The patient states that the pain in the left hip is currently well controlled. He has been up with physical therapy today. The patient is tolerating his diet well. He states he had a bowel movement last night, he denies abdominal pain. He currently feels well and has no complaints. The patient states he is returning home today, despite recommendations from physical therapy to be discharged to a rehab center. The patient states he will not go to a rehab center, he will be discharged home. The patient denies chest pain, shortness breath, nausea, vomiting, fevers, chills. Vital signs stable. Objective - Vital Signs Vital signs: Vital Signs Temp 97.6 F 08/10/19 04:26 Pulse 92 08/10/19 11:04 Resp 16 08/10/19 04:26 BP 167/74 08/10/19 04:26 Pulse Ox 94 L 08/10/19 04:26 Intake & Output 08/09/19 08/10/19 08/10/19 18:59 06:59 18:59 Intake Total 780 Output Total 1600 1000 Balance -820 -1000 Intake: Oral 780 Output: Urine 1600 1000 Uretheral (Lewis) 1000 Other: Voiding Method Indwelling Catheter Indwelling Catheter Indwelling Catheter # Voids 2 # Bowel Movements 1 - Exam On examination, the patient is sitting up in the bedside chair in no apparent distress. He is alert and oriented 3. Nasal cannula in place. On inspection of the left hip, very clean, dry, intact surgical dressings in place. The most distal dressing appears to have some bleeding through the dressing. There is minimal pain on palpation of the hip. No pain on palpation of the knee, ankle, foot. The left lower extremity is warm and well perfused with brisk capillary refill distally. Dorsalis pedis pulse palpable. Patient states he is unable to dorsiflex his left ankle, although he states he is unable to do this before surgery. Neurovascular is intact in the left lower extremity. Calves are soft and nontender to palpation bilaterally. - Labs CBC & Chem 7: 08/09/19 05:41 08/10/19 05:49 Labs: Abnormal Lab Results - Last 24 Hours (Table) 08/09/19 08/09/19 08/10/19 Range/Units 17:03 20:01 05:49 Sodium 130 L (137-145) mmol/L Chloride 93 L (98-107) mmol/L Creatinine 0.44 L (0.66-1.25) mg/dL POC Glucose (mg/dL) 170 H 164 H (75-99) mg/dL 08/10/19 Range/Units 06:55 Sodium (137-145) mmol/L Chloride (98-107) mmol/L Creatinine (0.66-1.25) mg/dL POC Glucose (mg/dL) 104 H (75-99) mg/dL Assessment and Plan Assessment: Status-post closed reduction and surgical stabilization of left intertrochanteric femur fracture with IM nail on 08/08/19. Post-operative day #2. Plan: - Touchdown weightbearing on the operative leg. Up with assistance, up a walker. - Continue physical therapy for gait and balance training. - [place] 5/325 mg for pain control as needed. - Lovenox 40 mg subcu daily for DVT prophylaxis. - I discussed with the patient his discharge plan. I explained to the patient that physical therapy is recommending the patient be discharged to a rehab facility. The patient adamantly refuses to be discharged to a rehab facility, he states he will return home. He states he has multiple family members to help him at home. I again recommended the patient to surgery rehab facility, although he refused. - Patient is okay for discharge from an orthopedic standpoint. Patient will follow up with Dr. Tomas in 2 weeks.
[2019-08-10 12:53] LABS: Glucose,Whole Blood 192 mg/dL (75-99)
--- NOTE | 2019-08-10 13:44 | P.PN ---
Subjective Progress Note Date: 08/10/19 Principal diagnosis: Acute comminuted intertrochanteric fracture of the left femur The patient is seen today 08/06/2019 in follow-up on the regular medical floor. He is currently sitting up in bed. Awake and alert in no acute distress. He denies any worsening shortness of breath, cough or congestion. His chest x-ray had shown some possible right lower lobe pneumonia. He is waiting clearance for an acute comminuted intertrochanteric fracture of the left femur. CT angiogram today ruled out pulmonary emboli. There is some bibasilar consolidation worse on the right. Emphysematous changes and interstitial fibrosis along the fissures bilaterally. There is a thoracic aortic aneurysm measuring 3.1 cm. White count 9.7. Hemoglobin 9.6. Sodium 129. Creatinine 0.42. He is continued on IV Solu-Medrol, bronchodilators, Levaquin. The patient is seen today 08/07/2019 in follow-up on the regular medical floor. He is awake and alert in no acute distress. Denies any shortness of breath, cough or congestion. No chest tightness or wheezing. Only complaint is that of left hip pain. He is maintaining O2 saturations in the low 90s on 4 L/m per nasal cannula. He is afebrile. Sodium 130. Potassium 3.8. Bicarb 29. Creatinine 0.37. He is continued on IV Solu-Medrol, bronchodilators, Singulair, Levaquin. The patient is seen today 08/09/2019 in follow-up on the regular medical floor. He is status post closed reduction and surgical stabilization of left inter trochanteric femur fracture with supplemental medullary IM nailing postoperative day #1. He is currently sitting up in a chair at the bedside. He denies any shortness of breath, cough or congestion. Maintaining O2 saturations in the 90s on room air. He's been afebrile. Hemodynamically stable. Dressing to surgical site is clean dry well approximated. White count 9.6. Hemoglobin 9.5. Creatin ine 0.38. He remains on DuoNeb inhalations, Pulmicort and Perforomist inhalations, IV Solu-Medrol. He was given Lasix 20 mg IVP 1 today. Completed his cefazolin. Remains in the CIWA protocol. The patient is seen today 08/10/2019 in follow-up on the regular medical floor. He is currently resting comfortably in bed. Awake and alert in no acute distress. He denies any worsening shortness of breath, cough or congestion. He is working well with the incentive spirometer. He is maintaining O2 saturations in the 90s on room air currently. Sodium 130. Potassium 3.6. Bicarb 29. Creatinine 0.44. His pain is well controlled. Objective - Vital Signs Vital signs: Vital Signs Temp 97.6 F 08/10/19 04:26 Pulse 92 08/10/19 11:04 Resp 16 08/10/19 04:26 BP 167/74 08/10/19 04:26 Pulse Ox 94 L 08/10/19 04:26 Intake & Output 08/09/19 08/10/19 08/10/19 18:59 06:59 18:59 Intake Total 780 Output Total 1600 1000 1000 Balance -820 -1000 -1000 Intake: Oral 780 Output: Urine 1600 1000 1000 Uretheral (Lewis) 1000 1000 Other: Voiding Method Indwelling Catheter Indwelling Catheter Indwelling Catheter # Voids 2 # Bowel Movements 1 - Exam GENERAL EXAM: Alert, pleasant 68-year-old gentleman, on room air. Afebrile. Comfortable in no apparent distress. HEAD: Normocephalic. EYES: Normal reaction of pupils, equal size. NOSE: Clear with pink turbinates. THROAT: No erythema or exudates. NECK: No masses, no JVD. CHEST: No chest wall deformity. LUNGS: Equal air entry with no rhonchi wheeze or dullness. Diminished. CVS: S1 and S2 normal with no audible murmur, regular rhythm. ABDOMEN: No hepatosplenomegaly, normal bowel sounds, no guarding or rigidity. SPINE: No scoliosis or deformity SKIN: No rashes CENTRAL NERVOUS SYSTEM: No focal deficits, tone is normal in all 4 extremities. EXTREMITIES: Dressing to the left hip is dry and intact. There is trace peripheral edema. No clubbing, no cyanosis. Peripheral pulses are intact. - Labs CBC & Chem 7: 08/09/19 05:41 08/10/19 05:49 Labs: Abnormal Lab Results - Last 24 Hours (Table) 08/09/19 08/09/19 08/10/19 Range/Units 17:03 20:01 05:49 Sodium 130 L (137-145) mmol/L Chloride 93 L (98-107) mmol/L Creatinine 0.44 L (0.66-1.25) mg/dL POC Glucose (mg/dL) 170 H 164 H (75-99) mg/dL 08/10/19 08/10/19 Range/Units 06:55 12:51 Sodium (137-145) mmol/L Chloride (98-107) mmol/L Creatinine (0.66-1.25) mg/dL POC Glucose (mg/dL) 104 H 192 H (75-99) mg/dL Assessment and Plan Assessment: 1 Acute left intertrochanteric hip fracture from fall, status post closed reduction and surgical stabilization of the left intertrochanteric femur fracture with cephalomedullary (IM) nailing, postoperative day #2 2 Left hip pain secondary to above 3 Acute exacerbation of chronic obstructive pulmonary disease 4 Acute hypoxemic respiratory failure. CT angiogram ruled out pulmonary embolu s. There is bibasilar consolidation worse on the right. Emphysematous changes as well as interstitial fibrosis most marketed along the fissures bilaterally. 5 Mild aneurysm dilatation ascending aorta measuring 3.1 cm 6 Chronic and ongoing tobacco dependence 7 Chronic alcohol use 8 Hypertension 9 Hyponatremia possibly related to EtOH 10 History of bladder cancer Plan: The patient was seen and evaluated by Dr. Gifty Perez from the pulmonary standpoint. Continue current pulmonary medications Encourage increased use of the incentive spirometer Home once cleared by surgical services/medicine I, the cosigning physician, performed a history & physical examination of the patient. Lungs sounds clear, diminished. Maintaining good O2 saturations in the 90s on room air. I discussed the assessment and plan of care with my nurse practitioner, Shiloh Patel. I attest to the above note as dictated by her.
--- NOTE | 2019-08-11 11:18 | CDI ---
Documentation Clarification Form Date: 08/11/19 From: Gem Blanchard Phone: If you have a question about this query, please contact Fiorella Diaz, Forensic Chemist at [phone] between 8am and 5pm. Admit Date: 08/04/19 Discharge Date:08/10/19 Patient Name: Jann Mensah Visit Number: [id number] ATTENTION: The Clinical Documentation Specialists (CDI) and [facility] Coding Staff appreciate your assistance in clarifying documentation. Please respond to the clarification below the line at the bottom and electronically sign. The CDI & [facility] Coding staff will review the response and follow-up if needed. Please note: Queries are made part of the Legal Health Record. If you have any questions, please contact the author of this message via ITS. Dear Dr. Duncan Severe chronic malnutrition has been documented in the Manager Supply Chain Planning's nutritional assessment History/Risk Factors: Alcohol abuse, COPD, history of bladder cancer, cigarette smoker Clinical Indicators: Decreased BMI Labs: Sodium 126, Chloride 93, BUN 8, Creatinine 0.34, WBC 11.1, Hgb 11.8, Hct 34.5 Current BMI: 18.2 Insufficient energy intake: 75% of nutritional needs Weight Loss: None documented Loss of subcutaneous fat: Severe fat loss per safety grooving machine operator Loss of muscle mass: Severe muscle loss per safety grooving machine operator Fluid accumulation: No edema Decreased hand foundry worker strength: None documented Treatment: Dietary Consult: See above Supplements: Enlive TID PPN/TPN: None In your professional opinion, can you please clarify if these findings signify one of the following conditions? Mild Protein-Calorie Malnutrition Moderate Protein-Calorie Malnutrition Severe Protein-Calorie Malnutrition Malnutrition, unspecified Other condition, please specify Unable to determine No malnutrition MTDD
--- NOTE | 2019-08-11 11:44 | CDI ---
Documentation Clarification Form Date: 08/11/19 From: Gem Blanchard Phone: If you have a question about this query, please contact Fiorella Diaz, Mop Maker at [phone] between 8am and 5pm. Admit Date: 08/04/19 Discharge Date:08/10/19 Patient Name: Jann Mensah Visit Number: [id number] ATTENTION: The Clinical Documentation Specialists (CDI) and [facility] Coding Staff appreciate your assistance in clarifying documentation. Please respond to the clarification below the line at the bottom and electronically sign. The CDI & [facility] Coding staff will review the response and follow-up if needed. Please note: Queries are made part of the Legal Health Record. If you have any questions, please contact the author of this message via ITS. Dear Dr. Grider Rule out urinary tract infection was documented in your consult note. History/Risk Factors: History of bladder cancer, alcohol abuse Clinical Indicators: Abnormal UA Vital Signs: T. 98.2, P. 88, R. 18, BP 140/105 WBC: 11.1 Urinalysis: Protein trace, Moderate leukocyte esterase, RBC 8, WBC 32, Mucus rare Urine Culture: Culture not done Treatment: IV Kefzol, patient also noted to have possible pneumonia Please document the condition that these clinical indicators signify, whether Present on Admission, and cause if known: UTI Ruled Out UTI -Specify organism, if known -Identify location of infection (if known) Bladder, Kidney, Urethra Pyelonephritis Contaminated specimen Other, please specify Unable to determine MTDD
--- NOTE | 2019-08-15 10:43 | CDI ---
Documentation Clarification Form Date: 08/15/19 From: Gem Blanchard Phone: If you have a question about this query, please contact Fiorella Diaz, Zookeeper at [phone] between 8am and 5pm. Admit Date: 08/15/19 Discharge Date:08/04/19 Patient Name: 08/10/[birth year] Visit Number: [id number] ATTENTION: The Clinical Documentation Specialists (CDI) and [facility] Coding Staff appreciate your assistance in clarifying documentation. Please respond to the clarification below the line at the bottom and electronically sign. The CDI & [facility] Coding staff will review the response and follow-up if needed. Please note: Queries are made part of the Legal Health Record. If you have any questions, please contact the author of this message via ITS. Dear Dr. Grider Thank you for signing the previous query. Please document a response before signing this query. Rule out urinary tract infection was documented in your consult note. History/Risk Factors: History of bladder cancer, alcohol abuse Clinical Indicators: Abnormal UA Vital Signs: T. 98.2, P. 88, R. 18, BP 140/105 WBC: 11.1 Urinalysis: Protein trace, Moderate leukocyte esterase, RBC 8, WBC 32, Mucus rare Urine Culture: Culture not done Treatment: IV Kefzol, patient also noted to have possible pneumonia Please document the condition that these clinical indicators signify, whether Present on Admission, and cause if known: UTI Ruled Out UTI -Specify organism, if known -Identify location of infection (if known) Bladder, Kidney, Urethra Pyelonephritis Contaminated specimen Other, please specify Unable to determine MTDD
--- NOTE | 2019-08-17 10:08 | CDI ---
Documentation Clarification Form Date: 08/17/19 From: Gem Blanchard Phone: If you have a question about this query, please contact Fiorella Diaz, Coal Dumping Equipment Operator at [phone] between 8am and 5pm. Admit Date: 08/04/19 Discharge Date:08/10/19 Patient Name: Jann Mensah Visit Number: [id number] ATTENTION: The Clinical Documentation Specialists (CDI) and [facility] Coding Staff appreciate your assistance in clarifying documentation. Please respond to the clarification below the line at the bottom and electronically sign. The CDI & [facility] Coding staff will review the response and follow-up if needed. Please note: Queries are made part of the Legal Health Record. If you have any questions, please contact the author of this message via ITS. Dear Dr. Grider Thank you for signing your previous query. Please document a response before signing this query. Rule out urinary tract infection was documented in your consult note. History/Risk Factors: History of bladder cancer, alcohol abuse Clinical Indicators: Abnormal UA Vital Signs: T. 98.2, P. 88, R. 18, BP 140/105 WBC: 11.1 Urinalysis: Protein trace, Moderate leukocyte esterase, RBC 8, WBC 32, Mucus rare Urine Culture: Culture not done Treatment: IV Kefzol, patient also noted to have possible pneumonia Please document the condition that these clinical indicators signify, whether Present on Admission, and cause if known: UTI Ruled Out UTI -Specify organism, if known -Identify location of infection (if known) Bladder, Kidney, Urethra Pyelonephritis Contaminated specimen Other, please specify Unable to determine __Unable to determine _ MTDD
== END 2019-08-10 13:51 | disposition home health service (06) | DRG 480 ==
LOC: EC 23:16 → 4SSUR 08-04 00:42 → 5NMEDONC 08-05 12:10
PROVIDERS: ADMIT Orthopaedic Surgery; ATTEND Orthopaedic Surgery
PROC: 0QS736Z Reposition Left Upper Femur with Intramedullary Internal Fixation Device, Percutaneous Approach (ICD-10-PCS; principal; 2019-08-08 08:00)
DX: S72.142A Displaced intertrochanteric fracture of left femur, initial encounter for closed fracture (principal); J18.9 Pneumonia, unspecified organism; J96.01 Acute respiratory failure with hypoxia; J96.02 Acute respiratory failure with hypercapnia; E22.2 Syndrome of inappropriate secretion of antidiuretic hormone; J44.0 Chronic obstructive pulmonary disease with (acute) lower respiratory infection; J44.1 Chronic obstructive pulmonary disease with (acute) exacerbation; I71.2 Thoracic aortic aneurysm, without rupture; E87.8 Other disorders of electrolyte and fluid balance, not elsewhere classified; F10.10 Alcohol abuse, uncomplicated; R00.0 Tachycardia, unspecified; F17.210 Nicotine dependence, cigarettes, uncomplicated; I10 Essential (primary) hypertension; Z85.51 Personal history of malignant neoplasm of bladder; Z79.899 Other long term (current) drug therapy; Z79.51 Long term (current) use of inhaled steroids; Z71.41 Alcohol abuse counseling and surveillance of alcoholic; Z82.49 Family history of ischemic heart disease and other diseases of the circulatory system; Z83.3 Family history of diabetes mellitus; W08.XXXA Fall from other furniture, initial encounter; Y92.009 Unspecified place in unspecified non-institutional (private) residence as the place of occurrence of the external cause
CPT/HCPCS: 36415; 36600; 71045; 71275; 73501; 73502; 80048; 80051; 81001; 82570; 82805; 83735; 83880; 83930; 83935; 84300; 84443; 84550; 85025; 85027; 85379; 85610; 85730; 86850; 86900; 86901; 93005; 94640; 94760; 96372; 96374; 96375; 99285